=== PATIENT | male | born 1935 | race Caucasian/White ===

== ENCOUNTER → 2016-07-03 | Outpatient (CLI) | payer MEDICARE, OTHER ==
[~2016-07-03] MED LIST: B-1210005 PO; CLIN1SOL; CREON24; CYAN1TAB24; D31000CA; D32000TA PO; DILA2TAB2 PO; FOLI400T PO; FOLI400T30 PO; GABA300C5; GABA600T PO; HYDR-3533 PO; HYDR-3583 PO; HYDR10SO PO; METR0.752; METR0.7537; PARO20TA PO; PARO20TA2; PARO30TA2 PO; RAMI10CA PO; RAMI10CA35 PO; SIMV20TA PO; TRAM50TA PO; TRAZ150T2 PO; TRAZ150T75; ULTR50TA PO; ZOCO40TA PO
[2016-07-03 13:09] LABS: AUTOMATED NEUTROPHIL # 6.3 TH/MM3 (1.8-7.7); BASOPHIL # 0.1 TH/MM3 (0-0.2); BASOPHIL % 0.8 % (0.0-2.0); EOSINOPHIL # 0.3 TH/MM3 (0-0.4); EOSINOPHIL % 3.4 % (0.0-4.0); HEMO FLAGS DIFF FINAL; LYMPH % 15.9 % (9.0-44.0); LYMPHOCYTE # 1.4 TH/MM3 (1.0-4.8); MEAN CELL VOLUME 95.3 FL (80.0-100.0); MEAN CORPUSCULAR HEMOGLOBIN 32.6 PG (27.0-34.0); MEAN CORPUSCULAR HGB CONC 34.2 % (32.0-36.0); MONO % 7.5 % (0.0-8.0); NEUT % 72.4 % (16.0-70.0); PLATELET COUNT 223 TH/MM3 (150-450); RED CELL DISTRIBUTION WIDTH 12.9 % (11.6-17.2); WHITE BLOOD COUNT 8.7 TH/MM3 (4.0-11.0)
== END ==
LOC: PLAB 10:33
PROVIDERS: ATTEND Urology
DX: C61 Malignant neoplasm of prostate (principal); E29.1 Testicular hypofunction; Z79.899 Other long term (current) drug therapy
CPT/HCPCS: 36415; 84153; 84402; 84403; 85025

== ENCOUNTER → 2016-07-13 | Outpatient (CLI) | payer MEDICARE, OTHER ==
[2016-07-13 16:26] LABS: BLOOD, URINE NEG (NEG); GLUCOSE,URINE NEG (NEG); KETONE, URINE NEG (NEG); MUCUS URINE FEW /lpf (OCC); NITRITE,URINE NEG (NEG); PH, URINE 5.5 (5.0-8.5); SQUAMOUS EPITHELIAL CELL URINE <1 /hpf (0-5); URINE COLOR YELLOW (YELLW/STRAW)
[2016-07-13 16:35] LABS: HEMATOCRIT 40.4 % (39.0-51.0); MEAN CELL VOLUME 95.1 FL (80.0-100.0); MEAN CORPUSCULAR HEMOGLOBIN 32.2 PG (27.0-34.0); MEAN CORPUSCULAR HGB CONC 33.9 % (32.0-36.0); PLATELET COUNT 178 TH/MM3 (150-450); RED BLOOD COUNT 4.25 MIL/MM3 (4.50-5.90); RED CELL DISTRIBUTION WIDTH 12.9 % (11.6-17.2); REVIEW FLAG FINAL; WHITE BLOOD COUNT 8.9 TH/MM3 (4.0-11.0)
[2016-07-13 16:51] LABS: AST (GOT) 12 U/L (15-37); BLOOD UREA NITROGEN 18 MG/DL (7-18); CHLORIDE 108 MEQ/L (98-107); GLOMERULAR FILTRATION RATE 51 ML/MIN (>89); GLUCOSE,FASTING 133 MG/DL (74-99); POTASSIUM 4.5 MEQ/L (3.5-5.1); SODIUM (NA) 142 MEQ/L (136-145)
[2016-07-13 17:28] LABS: ALKALINE PHOSPHATASE 79 U/L (45-117); ALT (GPT) 28 U/L (12-78); ANION GAP 7 MEQ/L (5-15); BICARBONATE 26.6 MEQ/L (21.0-32.0); HDL CHOLESTEROL 40.2 MG/DL (40.0-60.0); LDL CHOLESTEROL 88 MG/DL (0-99); LDL CHOLESTEROL DIRECT 94 MG/DL (0-99); TOTAL BILIRUBIN ADULT 0.3 MG/DL (0.2-1.0)
[2016-07-13 21:10] LABS: HEMOGLOBIN A1a 1.1 %; HEMOGLOBIN A1b 2.3 %; HEMOGLOBIN Ao 81.5 %; HEMOGLOBIN LA1C 2.5 %; HEMOGLOBIN P3 4.7 %
== END ==
LOC: PLAB 13:22
PROVIDERS: ATTEND Family Medicine
DX: E11.9 Type 2 diabetes mellitus without complications (principal); E78.2 Mixed hyperlipidemia; I10 Essential (primary) hypertension
CPT/HCPCS: 36415; 80053; 80061; 81001; 82043; 83036; 83721; 85027

== ENCOUNTER → 2016-10-07 | Outpatient (CLI) | payer MEDICARE, OTHER ==
[2016-10-07 16:01] LABS: HEMATOCRIT 36.9 % (39.0-51.0); MEAN CELL VOLUME 96.1 FL (80.0-100.0); MEAN CORPUSCULAR HEMOGLOBIN 33.2 PG (27.0-34.0); MEAN CORPUSCULAR HGB CONC 34.5 % (32.0-36.0); PLATELET COUNT 237 TH/MM3 (150-450); RED BLOOD COUNT 3.84 MIL/MM3 (4.50-5.90); RED CELL DISTRIBUTION WIDTH 13.2 % (11.6-17.2); REVIEW FLAG FINAL; WHITE BLOOD COUNT 10.2 TH/MM3 (4.0-11.0)
[2016-10-07 16:15] LABS: ALKALINE PHOSPHATASE 69 U/L (45-117); ALT (GPT) 26 U/L (12-78); ANION GAP 7 MEQ/L (5-15); AST (GOT) 15 U/L (15-37); BICARBONATE 27.1 MEQ/L (21.0-32.0); BLOOD UREA NITROGEN 21 MG/DL (7-18); CHLORIDE 105 MEQ/L (98-107); GLOMERULAR FILTRATION RATE 46 ML/MIN (>89); GLUCOSE,FASTING 145 MG/DL (74-99); LDL CHOLESTEROL 70 MG/DL (0-99); LDL CHOLESTEROL DIRECT 85 MG/DL (0-99); POTASSIUM 4.3 MEQ/L (3.5-5.1); SODIUM (NA) 139 MEQ/L (136-145); TOTAL BILIRUBIN ADULT 0.4 MG/DL (0.2-1.0)
[2016-10-07 18:47] LABS: HEMOGLOBIN A1a 1.8 %; HEMOGLOBIN A1b 2.1 %; HEMOGLOBIN LA1C 2.4 %; HEMOGLOBIN P3 4.3 %
== END ==
LOC: PLAB 11:16
PROVIDERS: ATTEND Family Medicine
DX: E11.9 Type 2 diabetes mellitus without complications (principal); E78.2 Mixed hyperlipidemia; I10 Essential (primary) hypertension
CPT/HCPCS: 36415; 80053; 80061; 83036; 83721; 85027

== ENCOUNTER 2016-11-11 12:49 | Emergency (ER) | payer MEDICARE, OTHER ==
[~2016-11-11] VITALS: Ht 177.8 cm; Wt 79.0 kg
[~2016-11-11 12:49] MED LIST changes: -CLIN1SOL; -CREON24; -CYAN1TAB24; -D31000CA; -DILA2TAB2 PO; -FOLI400T PO; -GABA300C5; -HYDR-3533 PO; -HYDR-3583 PO; -METR0.752; -METR0.7537; -PARO20TA2; -PARO30TA2 PO; -RAMI10CA PO; -SIMV20TA PO; -TRAM50TA PO; -TRAZ150T75
[2016-11-11 12:50] VITALS: BP 142/62; PULSE 78; RESP 20; TEMP 98.5; O2SAT 95
[2016-11-11] MEDS ORDERED: SIMV20TA PO ×2 (13:20)
[2016-11-11] MEDS ORDERED: TRAM50TA PO ×2 (13:20)
[2016-11-11] MEDS ORDERED: PARO30TA2 PO ×2 (13:20)
[2016-11-11] MEDS ORDERED: GABA600T PO ×2 (13:20)
[2016-11-11] MEDS ORDERED: RAMI10CA PO ×2 (13:20)
--- NOTE | 2016-11-11 14:03 | PD ---
HPI Chief Complaint: Pain: Acute or Chronic Time Seen by Provider: 13:40 Travel History International Travel<30 days: No Contact w/Intl Traveler<30days: No Traveled to known affect area: No History of Present Illness HPI Patient comes emergency Department complaining of left low back pain and increasing worse over the past 2 weeks. Patient previous back surgery done by Dr. Medley in 2013. Patient reports he had an MRI done 3 months ago. Patient states has been trying to get in contact with Dr. Medley, but has been unable to over the past couple weeks. Patient states pain is getting progressively worse. Patient states se's been taking his tramadol for this with little to no improvement of symptoms. Patient's pain was so bad today he was unable to stand on his left leg. Patient denies any new numbness or tingling, loss of bowel or bladder, chest pain, abdominal pain, shortness of breath, or fevers. Patient states he normally walks with walking sticks but has had to start using his walker again. PFSH Past Medical History Arthritis: Yes Anxiety: No Depression: No Cancer: Yes (PROSTATE CANCER) Cardiovascular Problems: No High Cholesterol: Yes Diabetes: No Endocrine: No Genitourinary: No Hepatitis: No Hiatal Hernia: No Hypertension: Yes Immune Disorder: No Musculoskeletal: Yes (ARTHRITIS, COMPRESSED DISC L3) Neurologic: No (LEFT NUMBNESS, TINGLING BILATERAL FEET) Psychiatric: Yes (DEPRESSION, ANXIETY) Reproductive: No Respiratory: Yes (COPD) Immunizations Current: No Past Surgical History Abdominal Surgery: No Body Medical Devices: NONE Cardiac Surgery: No Ear Surgery: No Endocrine Surgery: No Eye Surgery: Yes (CATARACT SURG BILAT.) Genitourinary Surgery: No Oral Surgery: Yes (TONSILLECTOMY) Pacemaker: No Thoracic Surgery: No Tonsillectomy: Yes Social History Alcohol Use: No Tobacco Use: Yes Substance Use: No Allergies-Medications (Allergen,Severity, Reaction): Coded Allergies: Sulfa (Unverified Allergy, Severe, Swelling, 06/11/14) Reported Meds & Prescriptions Reported Meds & Active Scripts Active Lortab (Hydrocodone-Acetaminophen) 5-325 Mg Tab 1 Tab PO Q8HR PRN Reported Tramadol (Tramadol HCl) 50 Mg Tab 50 Mg PO Q4H PRN Simvastatin 20 Mg Tab 20 Mg PO DAILY Paroxetine (Paroxetine HCl) 30 Mg Tab 30 Mg PO DAILY Ramipril 10 Mg Cap 10 Mg PO DAILY Gabapentin 600 Mg Tab 600 Mg PO TID Zocor 40 mg (Simvastatin) 40 Mg Tab 1 Tab PO HS ON HOLD FOR SURGERY Hydrocodone/Acetaminophen (Miscellaneous Medication) 1 Tab 1 Tab PO Q8 PRN Paroxetine Hcl 20 Mg Tab 50 Mg PO DAILY Ramipril 10 mg (Ramipril) 10 Mg Cap 10 Mg PO DAILY B-12 (Cyanocobalamin) 1,000 Cr Tab 1,000 Cr PO DAILY Gabapentin 600 Mg Tab 600 Mg PO TID Folate (Folic Acid) 400 Mcg Tab 800 Mcg PO Ultram (Tramadol HCl) 50 Mg Tab 50 Mg PO QID PRN D3 (Cholecalciferol) 2,000 Unit Tab 2,000 Unit PO DAILY Desyrel 150 Mg Tab (Trazodone HCl) 150 Mg Tab 75 Mg PO HS Review of Systems Except as stated in HPI: all other systems reviewed are Neg Physical Exam Narrative GENERAL: Well-developed, overly nourished, in no acute distress, and non-ill appearing. SKIN: Focused skin assessment warm and dry. HEAD: Atraumatic. Normocephalic. EYES: Pupils equal and round. EOMI. No scleral icterus. No injection or drainage. ENT: No nasal bleeding or discharge. Mucous membranes pink and moist. NECK: Trachea midline. Supple. No nuclear rigidity. CARDIOVASCULAR: Dorsal pulses 2+, intact, and equal bilaterally. RESPIRATORY: No accessory muscle use. No respiratory distress. MUSCULOSKELETAL: No obvious deformities. No clubbing. No cyanosis. No edema. Full range of motion. Hip: FROM and equal BL with passive flexion, extension, Abduction, Adduction, and internal/external rotation. Pulses equal BL distal to injury. Capillary refill less than 2 seconds distal to injury and equal BL. FROM distal to injury and equal BL. Strength distal to injury equal BL. NV intact distal to injury and equal BL. Plantar flexion and dorsal flexion equal BL. Dorsal pulses equal BL. Sensation equal BL 1st web space. No crepitus chest or midline lumbar spine. Patient reports palpation left lateral paravertebral spinal muscle. NEUROLOGICAL: Awake and alert. No obvious cranial nerve deficits. Motor grossly within normal limits. Normal speech. PSYCHIATRIC: Appropriate mood and affect; insight and judgment normal. Data Data Last Documented VS Vital Signs Date Time Temp Pulse Resp B/P Pulse Ox O2 Delivery O2 Flow Rate FiO2 5/17/17 12:50 98.5 78 20 142/62 95 Room Air Orders Acetamin-Hydrocod 325-5 Mg ([place] 5-325 (11/11/16 14:15) MDM Medical Decision Making Medical Screen Exam Complete: Yes Emergency Medical Condition: Yes Medical Record Reviewed: Yes Differential Diagnosis Fracture, strain, worsening bulging disc, other Narrative Course I discussed the options of the patient is being admitted versus going home. Patient is wanting to go home at this point and follow-up as an outpatient. Patient in no obvious distress upon re-evaluation. I discussed patient with Dr. Trimble prior to discharge, who is in agreement plan of care and disposition. Patient was asked if they wanted to speak to my attending, which the patient did not wish to do at this time. Any questions/concerns in reference to patient diagnosis/condition discussed and clarified prior to patient's discharge. Reinforced sheer importance of close follow up with Dr. Medley. Instructed patient to return to ED immediately, if symptoms return/ worsen. Pt showed understanding of above instructions. Further instructions and recommendations were detailed in discharge paperwork. Pt ambulated without difficulty out of ED at discharge with his walker. Physician Communication Physician Communication [address] Medley, who reviewed patient's MRI and recommended either having patient admitted, but states be several days before he is able get patient for surgery or if the patient is comfortable with going home and outpatient follow-up can be done as well. Diagnosis Primary Impression: Lumbar herniated disc Referrals: Tyson Medley MD Patient Instructions: General Instructions, Lumbar Disc Herniation (ED) Additional Instructions: Follow-up with Dr. Medley as soon as possible. Call his office for an appointment. Take all medication as prescribed. Return to the emergency department if symptoms get worse. Med/Other Pt SpecificInfo: Prescription(s) given Scripts Hydrocodone-Acetaminophen (Lortab)5-325 Mg Tab1 Tab PO Q8HR PRN (PAIN) #10 TAB Ref 0 Prov:Matias Trimble MD 11/11/16 Disposition: 01 DISCHARGE HOME Condition: Stable Bryan Evans November 11, 2016 14:03
[2016-11-11] MEDS ORDERED: HYDR-3533 PO (14:10)
[2016-11-11] MEDS ORDERED: ACETAMINOPHEN/HYDROcodone 325 MG/5 MG TAB PO ONE (14:15)
[2016-11-12] MEDS ORDERED: PARO20TA2 (13:44)
[2016-11-12] MEDS ORDERED: FOLI400T PO ×2 (13:44)
[2016-11-12] MEDS ORDERED: D31000CA ×2 (13:44)
[2016-11-12] MEDS ORDERED: CLIN1SOL ×2 (13:44)
[2016-11-12] MEDS ORDERED: GABA300C5 (13:44)
[2016-11-12] MEDS ORDERED: TRAZ150T75 ×2 (13:44)
[2016-11-12] MEDS ORDERED: METR0.7537 ×2 (13:44)
[2016-11-12] MEDS ORDERED: CREON24 ×2 (13:44)
[2016-11-12] MEDS ORDERED: CYAN1TAB24 ×2 (13:44)
[2016-11-12] MEDS ORDERED: METR0.752 ×2 (13:44)
== END 2016-11-11 14:33 | disposition home or self-care (01) ==
LOC: NEPD 12:49
DX: M51.26 Other intervertebral disc displacement, lumbar region (principal)
CPT/HCPCS: 99283

== ENCOUNTER 2016-11-14 12:18 | Inpatient (IN) | payer MEDICARE, OTHER ==
[~2016-11-14] VITALS: Ht 175.3 cm; Wt 78.3 kg
[~2016-11-14 12:18] MED LIST changes: +CLIN1SOL; +CREON24; +CYAN1TAB24; +D31000CA; +FOLI400T PO; +GABA300C5; +HYDR-3533 PO; +METR0.752; +METR0.7537; +PARO20TA2; +PARO30TA2 PO; +RAMI10CA PO; +SIMV20TA PO; +TRAM50TA PO; +TRAZ150T75
[2016-11-14 12:19] VITALS: BP 125/58; PULSE 74; RESP 20; TEMP 98.5; O2SAT 95
--- NOTE | 2016-11-14 12:44 | PD ---
HPI Chief Complaint: Pain: Acute or Chronic Time Seen by Provider: 12:44 Travel History International Travel<30 days: No Contact w/Intl Traveler<30days: No Traveled to known affect area: No History of Present Illness HPI Patient comes back to the emergency department after being seen 3 days ago for worsening back pain. Patient was offered admission at that time however chose to try outpatient treatment first. Patient states he's been taking tramadol along with hydrocodone that was prescribed from previous visit however his pain continues getting worse. Patient states he is getting more decreased sensation in his left lower extremity. Denies any loss or change of bowel or bladder, falls, nausea, vomiting, fevers, abdominal pain, or shortness of breath. Patient describes pain as sharp/stabbing/spasm in nature and radiates slightly into his left lower extremity. Patient reports some difficulty taking care of himself at home secondary to the pain and ambulatory issues. Pain is made worse with walking and certain movement. Patient has a history of COPD, hypertension, hyperlipidemia, and L3 disc compression. PFSH Past Medical History Arthritis: Yes Anxiety: No Depression: Yes Cancer: Yes (PROSTATE CANCER) Cardiovascular Problems: Yes (htn) High Cholesterol: Yes Diabetes: No Endocrine: No Gastrointestinal Disorders: Yes (CELIAC DISEASE) Genitourinary: No Hepatitis: No Hiatal Hernia: No Hypertension: Yes Immune Disorder: No Musculoskeletal: Yes (ARTHRITIS, COMPRESSED DISC L3) Neurologic: No (LEFT NUMBNESS, TINGLING BILATERAL FEET) Psychiatric: Yes (DEPRESSION, ANXIETY) Reproductive: No Respiratory: Yes (COPD) Immunizations Current: No Influenza Vaccination: Yes Past Surgical History Abdominal Surgery: No Body Medical Devices: NONE Cardiac Surgery: No Ear Surgery: No Endocrine Surgery: No Eye Surgery: Yes (CATARACT SURG BILAT.) Genitourinary Surgery: No Oral Surgery: Yes (TONSILLECTOMY) Pacemaker: No Thoracic Surgery: No Tonsillectomy: Yes Social History Alcohol Use: No Tobacco Use: Yes (1/2 ppd) Substance Use: No Allergies-Medications (Allergen,Severity, Reaction): Coded Allergies: Sulfa (Unverified Allergy, Severe, Swelling, 11/14/16) Reported Meds & Prescriptions Reported Meds & Active Scripts Active Lortab (Hydrocodone-Acetaminophen) 5-325 Mg Tab 1 Tab PO Q8HR PRN Reported Folic Acid 400 Mcg Tab 400 Mcg PO DAILY B12 (Cyanocobalamin) 1,000 Mcg Tab D3 (Cholecalciferol) 1,000 Unit Cap 2,000 Creon (Amylase/Lipase/Protease) 24,000-76,000-120,000 Units Cap Trazodone (Trazodone HCl) 150 Mg Tab Clindamycin Topical (Clindamycin Phosphate) 1% Soln Metronidazole Topical 0.75 % Cream Metronidazole Topical 0.75 % Gel Tramadol (Tramadol HCl) 50 Mg Tab 50 Mg PO Q4H PRN Simvastatin 20 Mg Tab 20 Mg PO DAILY Paroxetine (Paroxetine HCl) 30 Mg Tab 30 Mg PO DAILY Ramipril 10 Mg Cap 10 Mg PO DAILY Gabapentin 600 Mg Tab 600 Mg PO TID Review of Systems Except as stated in HPI: all other systems reviewed are Neg Physical Exam Narrative GENERAL: Well-developed, overly nourished, in no acute distress, and non-ill appearing. SKIN: Focused skin assessment warm and dry. HEAD: Atraumatic. Normocephalic. EYES: Pupils equal and round. EOMI. No scleral icterus. No injection or drainage. ENT: No nasal bleeding or discharge. Mucous membranes pink and moist. NECK: Trachea midline. Supple. No nuclear rigidity. CARDIOVASCULAR: Dorsal pulses 2+, tach, and intact. Capillary refill is less than 2 seconds. RESPIRATORY: No accessory muscle use. No respiratory distress. MUSCULOSKELETAL: No obvious deformities. No clubbing. No cyanosis. No edema. Full range of motion. Hip: FROM and equal BL with passive flexion, extension, Abduction, Adduction, and internal/external rotation. Pulses equal BL distal to injury. Capillary refill less than 2 seconds distal to injury and equal BL. FROM distal to injury. Dorsal flexion equal BL. Dorsal pulses equal BL. Sensation decreased over left lower extremity compared to right over 1st web space. Negative Babinski sign bilaterally. Decreased strength with plantar flexion on left compared to right. NEUROLOGICAL: Awake and alert. No obvious cranial nerve deficits. Motor grossly within normal limits. Normal speech. PSYCHIATRIC: Appropriate mood and affect; insight and judgment normal. Data Data Last Documented VS Vital Signs Date Time Temp Pulse Resp B/P Pulse Ox O2 Delivery O2 Flow Rate FiO2 11/14/16 12:19 98.5 74 20 125/58 95 Room Air Orders Basic Metabolic Panel (Bmp) (11/14/16 12:52) Complete Blood Count With Diff (11/14/16 12:52) Prothrombin Time / Inr (Pt) (11/14/16 12:52) Act Partial Throm Time (Ptt) (11/14/16 12:52) Iv Access Insert/Monitor (11/14/16 12:52) Ecg Monitoring (11/14/16 12:52) Oximetry (11/14/16 12:52) Morphine Inj (Morphine Inj) (11/14/16 13:00) Ondansetron Inj (Zofran Inj) (11/14/16 13:00) Sodium Chloride 0.9% Flush (Ns Flush) (11/14/16 13:00) Admit Order (Ed Use Only) (11/14/16 14:43) Admit To Inpatient (11/14/16 14:41) Vital Signs (Adult) Q4H (11/14/16 14:41) ^ Elevate Head Of Bed (11/14/16 14:41) Diet Regular Basic (11/14/16 Dinner) Resp Incentive Spirometry (11/14/16 14:41) Consult Pt Eval & Treat (11/14/16 14:41) Activity Oob With Assistance PRN (11/14/16 14:41) Scd Bilateral/Knee High ITZEL.QSHIFT (11/14/16 14:41) Vital Signs (Adult) ITZEL.Q4H (11/14/16 14:41) Neuro Checks RT.Q4H (11/14/16 14:41) Inpatient Certification (11/14/16 ) Oxycodone-Acetamin 10-325 Mg (Percocet 1 (11/14/16 14:45) Hydromorphone Pf Inj (Dilaudid Pf Inj) (11/14/16 14:45) Morphine Inj (Morphine Inj) (11/14/16 14:45) Oxycodone (Roxicodone) (11/14/16 14:45) Naloxone Inj (Narcan Inj) (11/14/16 14:45) Folic Acid (Folate) (11/15/16 09:00) Acetamin-Hydrocod 325-5 Mg ([place] 5-325 (11/14/16 15:00) Tramadol (Ultram) (11/14/16 15:00) Paroxetine (Paxil) (11/15/16 09:00) Ramipril (Altace) (11/15/16 09:00) Labs Laboratory Tests Test 11/14/16 13:01 White Blood Count 8.3 TH/MM3 Red Blood Count 3.90 MIL/MM3 Hemoglobin 12.9 GM/DL Hematocrit 37.1 % Mean Corpuscular Volume 95.1 FL Mean Corpuscular Hemoglobin 33.1 PG Mean Corpuscular Hemoglobin 34.8 % Concent Red Cell Distribution Width 12.9 % Platelet Count 189 TH/MM3 Mean Platelet Volume 8.9 FL Neutrophils (%) (Auto) 72.5 % Lymphocytes (%) (Auto) 13.5 % Monocytes (%) (Auto) 11.3 % Eosinophils (%) (Auto) 2.1 % Basophils (%) (Auto) 0.6 % Neutrophils # (Auto) 6.0 TH/MM3 Lymphocytes # (Auto) 1.1 TH/MM3 Monocytes # (Auto) 0.9 TH/MM3 Eosinophils # (Auto) 0.2 TH/MM3 Basophils # (Auto) 0.0 TH/MM3 CBC Comment DIFF FINAL Differential Comment Prothrombin Time 10.6 SEC Prothromb Time International 1.0 RATIO Ratio Activated Partial 27.5 SEC Thromboplast Time Sodium Level 141 MEQ/L Potassium Level 4.1 MEQ/L Chloride Level 108 MEQ/L Carbon Dioxide Level 25.2 MEQ/L Anion Gap 8 MEQ/L Blood Urea Nitrogen 17 MG/DL Creatinine 1.23 MG/DL Estimat Glomerular Filtration 57 ML/MIN Rate Random Glucose 130 MG/DL Calcium Level 8.9 MG/DL MDM Medical Decision Making Medical Screen Exam Complete: Yes Emergency Medical Condition: Yes Medical Record Reviewed: Yes Interpretation(s) MRI report was reviewed from July 31, 2016. Shows L3/4, there is a broad- based posterior disc bulge and focal disc extrusion into the left neural foramen with impingement of the left L3 nerve root which appears to have worsened slightly since 2014 examination. Remainder of lumbar spine stable since prior study. No fracture or spondylolisthesis. Conus medullaris is intact. Differential Diagnosis Lumbar herniated disc, lumbar radiculopathy, intractable back pain, other Narrative Course 0786 patient reassessed resting comfortably in bed in no acute distress. States pain medication as helped some but has not completely alleviated his pain. Discussed all findings with patient's lab work. Awaiting neurosurgery. Patient seen and examined. IV was established. Laboratory studies were obtained and reviewed. Patient was given morphine for pain and Zofran for nausea. Discussed patient with Dr. Mejia, who saw and evaluated the patient and is in agreement with plan of care and disposition. Discussed all findings and plan care of patient is agreeable for admission. All questions were answered. Patient remained stable throughout ED course. Physician Communication Physician Communication [address] Medley, neurosurgical hole in patient's neurosurgeon, states he'll come evaluate patient in the emergency department. 1440 discussed laboratory findings and MRI report from July of this year with Dr. Medley, states he will admit the to patient. Diagnosis Primary Impression: Lumbar herniated disc Additional Impression: Intractable low back pain Admitting Information Admitting Physician Requests: Admit Condition: Stable Bryan Evans November 14, 2016 12:44
[2016-11-14] MEDS ORDERED: ONDANSETRON HCL 4 MG/2 ML VIAL IVP ONE (13:00)
[2016-11-14] MEDS ORDERED: SODIUM CHLORIDE 0.9% FLUSH 10 ML FLUSH IV FLUSH PRN (13:00)
[2016-11-14] MEDS ORDERED: MORPHINE SULFATE 4 MG/ML INJ IV PUSH ONE (13:00)
[2016-11-14 13:26] LABS: BASOPHIL % 0.6 % (0.0-2.0); EOSINOPHIL # 0.2 TH/MM3 (0-0.4); EOSINOPHIL % 2.1 % (0.0-4.0); HEMATOCRIT 37.1 % (39.0-51.0); HEMO FLAGS DIFF FINAL; LYMPH % 13.5 % (9.0-44.0); LYMPHOCYTE # 1.1 TH/MM3 (1.0-4.8); MEAN CELL VOLUME 95.1 FL (80.0-100.0); MEAN CORPUSCULAR HEMOGLOBIN 33.1 PG (27.0-34.0); MEAN CORPUSCULAR HGB CONC 34.8 % (32.0-36.0); MONO % 11.3 % (0.0-8.0); NEUT % 72.5 % (16.0-70.0); PLATELET COUNT 189 TH/MM3 (150-450); RED CELL DISTRIBUTION WIDTH 12.9 % (11.6-17.2); WHITE BLOOD COUNT 8.3 TH/MM3 (4.0-11.0)
[2016-11-14 13:35] LABS: APTT (PATIENT) 27.5 SEC (24.3-30.1); PROTHROMBIN TIME - PATIENT 10.6 SEC (9.8-11.6)
[2016-11-14 13:41] LABS: BICARBONATE 25.2 MEQ/L (21.0-32.0); POTASSIUM 4.1 MEQ/L (3.5-5.1)
[2016-11-14] MEDS ORDERED: HYDROmorphone HCL PF 1 MG/ML VIAL IV PRN (14:45)
[2016-11-14] MEDS ORDERED: NALOXONE HCL 0.4 MG/ML AMP IV PRN (14:45)
[2016-11-14 14:50] VITALS: RESP 16; O2SAT 97
[2016-11-14] MEDS ORDERED: traMADol HCL 50 MG TAB PO PRN (15:00)
[2016-11-14] MEDS ORDERED: ACETAMINOPHEN/HYDROcodone 325 MG/5 MG TAB PO PRN (15:00)
--- NOTE | 2016-11-14 15:11 | HHI.HP ---
HPI Service Neurosurgery Primary Care Physician Allan Lewis MD Chief Complaint: Progressive severe back pain with radiation to the left lower extremity History of Present Illness 81-year-old male previously seen by the undersigned in 2013 at which time he underwent a left L3-4 far lateral approach for foraminotomy and foraminal disc herniation. He initially did well following surgery. However approximately 3 months ago he began to experience recurrent pain in the left lower extremity. He was seen by interventional pain management a couple months ago, but declined epidural steroid injections or other intervention since ceased did not help prior to his last surgery. He was in the emergency room approximately 3 days ago. At that time admission and surgical intervention were offered, however he elected to continue outpatient conservative treatment. He returns to the emergency room on 11/14/2016 with persistent severe left lower extremity pain which is not controlled with medications. No complaint of fevers chills sweats No bowel or bladder dysfunction No pain weakness or numbness or paresthesias in the upper extremities Review of Systems Constitutional: DENIES: Fatigue, Fever, Weight loss Eyes: COMPLAINS OF: Vision loss Ears, nose, mouth, throat: DENIES: Hearing loss, Vertigo, Throat pain Respiratory: COMPLAINS OF: Cough, Wheezing, Shortness of breath, DENIES: Sputum production Cardiovascular: DENIES: Chest pain, Palpitations Gastrointestinal: DENIES: Abdominal pain, Constipation, Diarrhea, Nausea Genitourinary: DENIES: Urinary incontinence Musculoskeletal: COMPLAINS OF: Joint pain Neurologic: COMPLAINS OF: Localized weakness, DENIES: Abnormal gait Past Family Social History Allergies: Coded Allergies: Sulfa (Unverified Allergy, Severe, Swelling, 11/14/16) Past Medical History Hypertension COPD dyslipidemia Arthritis History of prostate cancer Anxiety and depression Past Surgical History Tonsillectomy Cataract surgery Lumbar discectomy 2013 Reported Medications Reported Meds & Active Scripts Active Lortab (Hydrocodone-Acetaminophen) 5-325 Mg Tab 1 Tab PO Q8HR PRN Reported Folic Acid 400 Mcg Tab 400 Mcg PO DAILY B12 (Cyanocobalamin) 1,000 Mcg Tab D3 (Cholecalciferol) 1,000 Unit Cap 2,000 Creon (Amylase/Lipase/Protease) 24,000-76,000-120,000 Units Cap Trazodone (Trazodone HCl) 150 Mg Tab Clindamycin Topical (Clindamycin Phosphate) 1% Soln Metronidazole Topical 0.75 % Cream Metronidazole Topical 0.75 % Gel Tramadol (Tramadol HCl) 50 Mg Tab 50 Mg PO Q4H PRN Simvastatin 20 Mg Tab 20 Mg PO DAILY Paroxetine (Paroxetine HCl) 30 Mg Tab 30 Mg PO DAILY Ramipril 10 Mg Cap 10 Mg PO DAILY Gabapentin 600 Mg Tab 600 Mg PO TID Family History Positive for macular degeneration Social History Smokes a half pack cigarettes per day No significant alcohol use Physical Exam Vital Signs Vital Signs Date Time Temp Pulse Resp B/P Pulse Ox O2 Delivery O2 Flow Rate FiO2 11/14/16 12:19 98.5 74 20 125/58 95 Room Air Physical Exam GENERAL: Well-nourished, well-developed patient. SKIN: Warm and dry. HEAD: Normocephalic and atraumatic. EYES: No scleral icterus. No injection or drainage. ENT: No nasal drainage noted. Mucous membranes pink. Airway patent. NECK: Supple, trachea midline. No JVD. CARDIOVASCULAR: Regular rate and rhythm without murmurs, gallops, or rubs. RESPIRATORY: Mild crackles in the upper lungs. Mild intermittent right upper lung inspiratory wheeze. Mild nonproductive cough GASTROINTESTINAL: Abdomen soft, non-tender, nondistended. EXTREMITIES: No cyanosis or edema. BACK: Nontender without obvious deformity. No CVA tenderness. Neurologic: Awake and alert Oriented 3 Speech is clear Mild slowing of speech and thought processes Conversant and appropriate Follow simple commands well Answers questions appropriately Reasonable judgment and insight Recent and remote memory are mildly impaired No evidence of anxiety or depression Sensation intact by touch upper extremities and right lower extremity Moderate decreased sensation primarily L3-4 distribution left thigh and calf Strength is within normal limits upper extremities and right lower extremity major flexion and extension groups Strength is somewhat diffusely diminished to mostly 3/5 throughout the left lower extremity major flexion and extension groups with complaining of significant lateral hip, anterior lateral thigh pain with testing. Laboratory Laboratory Tests Test 11/14/16 13:01 White Blood Count 8.3 Red Blood Count 3.90 Hemoglobin 12.9 Hematocrit 37.1 Mean Corpuscular Volume 95.1 Mean Corpuscular Hemoglobin 33.1 Mean Corpuscular Hemoglobin 34.8 Concent Red Cell Distribution Width 12.9 Platelet Count 189 Mean Platelet Volume 8.9 Neutrophils (%) (Auto) 72.5 Lymphocytes (%) (Auto) 13.5 Monocytes (%) (Auto) 11.3 Eosinophils (%) (Auto) 2.1 Basophils (%) (Auto) 0.6 Neutrophils # (Auto) 6.0 Lymphocytes # (Auto) 1.1 Monocytes # (Auto) 0.9 Eosinophils # (Auto) 0.2 Basophils # (Auto) 0.0 CBC Comment DIFF FINAL Differential Comment Prothrombin Time 10.6 Prothromb Time International 1.0 Ratio Activated Partial 27.5 Thromboplast Time Sodium Level 141 Potassium Level 4.1 Chloride Level 108 Carbon Dioxide Level 25.2 Anion Gap 8 Blood Urea Nitrogen 17 Creatinine 1.23 Estimat Glomerular Filtration 57 Rate Random Glucose 130 Calcium Level 8.9 Result Diagram: 11/14/16 1301 11/14/16 1301 Imaging The patient's most recent MRI of the lumbar spine from July 2016 images are reviewed. There appears to be a prominent left L4-5 recurrent disc herniation, although lateral synovial cyst cannot be totally ruled out. Assessment and Plan Assessment and Plan Impression: 1. Recurrent left L3 4 foraminal herniated nucleus pulposus. Cannot totally rule out a recurrent synovial cyst based on MRI imaging. Plan: Findings were discussed at length with the patient Options of further conservative treatment including use of various medications, interventional pain management, and surgical intervention have been fully discussed. Surgical options of repeat discectomy versus possible interbody fusion in view of recurrent disc herniation has been discussed along with pros and cons of each. He states that his pain has been quite severe and not responding well to medications and conservative therapy over the past 3 months. He did not get good relief from previous epidural steroid injections and does not wish to repeat these. He wishes to proceed with surgical intervention. A follow-up MRI of the lumbar spine with and without contrast will be obtained to try to better delineate the pathology involved. Continuing intravenous pain medications and muscle relaxants as needed. Tyson Medley MD November 14, 2016 15:11
[2016-11-14] MEDS ORDERED: PILL SPLITTER OTHER PRN (15:15)
[2016-11-14] MEDS: MORPHINE SULFATE 4 MG/ML INJ IV PRN (16:33)
[2016-11-14 17:33] VITALS: BP 153/69; PULSE 62; RESP 20; TEMP 96.3; O2SAT 95
[2016-11-14] MEDS: oxyCODONE/ACETAMINOPHEN 10 MG/325 MG TAB PO PRN (18:02)
[2016-11-14 20:00] VITALS: BP 161/76; PULSE 73; RESP 18; TEMP 96.2; O2SAT 92
[2016-11-15] VITALS: BP 120/71; PULSE 71; RESP 18; TEMP 97.3; O2SAT 93
[2016-11-15] MEDS: MORPHINE SULFATE 4 MG/ML INJ IV PRN ×3 (01:24→12:28)
[2016-11-15 04:00] VITALS: BP 159/72; PULSE 78; RESP 18; TEMP 97; O2SAT 92
[2016-11-15 08:03] VITALS: BP 151/71; PULSE 77; RESP 20; TEMP 98.9; O2SAT 93
[2016-11-15] MEDS ORDERED: GADODIAMIDE PF 287 MG/ML 20 ML VIAL (for RAD MRI) IV ONE (08:31)
[2016-11-15] MEDS ORDERED: PARoxetine HCL 20 MG TAB PO SCH (09:00)
[2016-11-15] MEDS ORDERED: FOLIC ACID 1 MG TAB PO SCH (09:00)
[2016-11-15] MEDS ORDERED: RAMIPRIL 5 MG CAP PO SCH (09:00)
--- NOTE | 2016-11-15 09:10 | RADRPT ---
EXAM DATE/TIME: 11/15/2016 08:18 [facility] COMPARISON: No previous studies available for comparison. INDICATIONS : Low back pain with left radiculopathy. CONTRAST: 16 cc Omniscan (gadodiamide) IV MEDICAL HISTORY : Hypertension. Carcinoma, prostate. SURGICAL HISTORY : Tonsillectomy. Discectomy, lumbar. ENCOUNTER: Initial ACUITY: 2 day PAIN SCORE: 3/10 LOCATION: Left Paraspinal TECHNIQUE: Multiplanar multisequence MRI of the lumbar spine was performed with and without contrast. FINDINGS: The most caudal appearing lumbar vertebra is numbered as L5. There is diffuse disc desiccation. Conus unremarkable. Multilevel osteophyte formation is seen. No compression deformities. Mild reactive end plate edema at L4-5. There is mild disc space narrowing throughout the lumbar spine. L5 pars defects are suspected bilaterally. There is focal ectasia of the infrarenal abdominal aorta measuring 2.8 cm in transverse on axial image 19 of series 5. Multiple bilateral renal cysts are noted. There is a sma ll synovial cyst posterior to the L4 inferior articular facet on the left measures 7.6 mm. T12-L1: The thecal sac has a normal diameter. No evidence of disc bulge or protrusion. The neural foramina are patent bilaterally. L1-L2: The thecal sac has a normal diameter. No evidence of disc bulge or protrusion. The neural foramina are patent bilaterally. L2-L3: Mammography status post greatest laterally on the right. Mild facet and ligamentum flavum hypertrophy . No canal or foraminal narrowing. L3-L4: A diffuse disc bulge is present abutting the L4 nerve roots and L3 exiting nerves, left greater than right. Moderate facet and ligamentum flavum hypertrophy. No canal narrowing. Mild right, moderate to severe left foraminal narrowing. A superimposed broad-based left foraminal/lateral protrusion demonst rates mass effect on the L3 exiting nerve. L4-L5: Mild diffuse disc bulge with moderate facet hypertrophy. There is moderate bilateral foraminal narrow ing. Abutment of the L4 exiting nerves is seen. L5-S1: A diffuse disc bulge is present. There is abutment of the L5 exiting nerves. Mild bilateral foraminal narrowing. CONCLUSION: 1. Degenerative changes are noted as described above. Geronimo Caban MD on November 15, 2016 at 9:04 Board Certified Radiologist. This report was verified electronically.
[2016-11-15] MEDS: oxyCODONE/ACETAMINOPHEN 10 MG/325 MG TAB PO PRN (09:34)
[2016-11-15 12:22] VITALS: BP 123/63; PULSE 71; RESP 20; TEMP 98.4; O2SAT 94
[2016-11-15 12:44] VITALS: RESP 18
[2016-11-15] MEDS ORDERED: DILA2TAB2 PO (14:13)
[2016-11-15] MEDS ORDERED: HYDR-3583 PO (14:19)
--- NOTE | 2016-11-15 14:20 | HHI.DCPOC ---
Discharge Care Plan Diagnosis: (1) Neuropathy of lower extremity (2) Lumbar herniated disc (3) Lumbar radiculopathy Your Health Problems Are: Difficulty with ADL Loss of Movements Chronic Pain Goals to Promote Your Health * To prevent worsening of your condition and complications * To maintain your health at the optimal level Directions to Meet Your Goals Take your medications as prescribed Follow your dietary instruction Follow activity as directed Keep your appointments as scheduled Take your immunizations and boosters as scheduled If your symptoms worsen call your PCP, if no PCP go to Urgent Care Center or Emergency Room Smoking is Dangerous to Your Health. Avoid second hand smoke Call the 24-hour hour crisis hotline for domestic abuse at Tyson Medley MD November 15, 2016 14:20
--- NOTE | 2016-11-15 14:30 | HHI.DS ---
Discharge Summary Admission Date November 14, 2016 at 15:00 Discharge Date: November 15, 2016 Admitting Diagnosis lumbar disc herniation, intractable back pain (1) Lumbar herniated disc Diagnosis: Principal ICD Code: M51.26 (2) Lumbar radiculopathy Diagnosis: Secondary ICD Code: M54.16 (3) Neuropathy of lower extremity Diagnosis: Secondary ICD Code: G57.90 Brief History 81-year-old male previously seen by the undersigned in 2013 at which time he underwent a left L3-4 far lateral approach for foraminotomy and foraminal disc herniation. He initially did well following surgery. However approximately 3 months ago he began to experience recurrent pain in the left lower extremity. He was seen by interventional pain management a couple months ago, but declined epidural steroid injections or other intervention since ceased did not help prior to his last surgery. He was in the emergency room approximately 3 days ago. At that time admission and surgical intervention were offered, however he elected to continue outpatient conservative treatment. He returns to the emergency room on 11/14/2016 with persistent severe left lower extremity pain which is not controlled with medications. No complaint of fevers chills sweats No bowel or bladder dysfunction No pain weakness or numbness or paresthesias in the upper extremities CBC/BMP: 11/14/16 1301 11/14/16 1301 Significant Findings Laboratory Tests Test 11/14/16 13:01 Red Blood Count 3.90 MIL/MM3 (4.50-5.90) Hemoglobin 12.9 GM/DL (13.0-17.0) Hematocrit 37.1 % (39.0-51.0) Neutrophils (%) (Auto) 72.5 % (16.0-70.0) Monocytes (%) (Auto) 11.3 % (0.0-8.0) Chloride Level 108 MEQ/L (98-107) Estimat Glomerular Filtration 57 ML/MIN (>89) Rate Random Glucose 130 MG/DL (74-106) Imaging At least moderate left L4 5 and L3 4 foraminal stenosis related to disc displacement and facet and ligament hypertrophy Lumbar Spine MRI 11/15/16 0000 Signed Impressions: Service Date/Time: Tuesday, November 15, 2016 08:18 - CONCLUSION: 1. Degenerative changes are noted as described above. Geronimo Caban MD PE at Discharge Awake and alert Speech clear and appropriate Hard of hearing Follows commands well Reasonable judgment and insight No evidence of anxiety or depression Pain distribution is primarily left L3-4. Left lower extremity motor decreased to approximately 2+/5 in quadriceps and tibialis anterior with 3/5 left extensor hallucis longus, normal left iliopsoas and hamstrings and gastrocsoleus Strength normal in the right lower extremity major flexion and extension groups Hospital Course Patient admitted through the emergency room with severe intractable left gluteal , lateral hip and anterior medial thigh pain. Follow-up MRI obtained which reveals new left L4 5 foraminal disc displacement with at least moderate stenosis and recurrent left L3 4 foraminal disc herniation. Patient's examination reveals significant left L5 motor deficit, not consistent with MRI findings-possible neuropathy. Patient indicates that the left lower extremity motor deficit has been present for several months. Discussed at length with the patient. Continuing gabapentin. Dilaudid 2 mg tablets for breakthrough pain He is in agreement with home with already arranged home health care 3 times a week through the [facility] He will be scheduled on an elective outpatient basis for surgery. Pt Condition on Discharge: Stable Discharge Disposition: Discharge Home Discharge Instructions DIET: Follow Instructions for: As Tolerated, No Restrictions ACTIVITIES You can perform: Weight Bearing As Em Activities to Avoid: Lifting/Bending, Strenuous Activity New Medications: Hydrocodone-Acetaminophen (Hydrocodone-Acetaminophen) 10-325 mg Tab 1 TAB PO Q6H PRN PAIN #90 Ref 0 TAB Hydromorphone (Dilaudid) 2 Mg Tab 2 MG PO Q4H PRN PAIN SCALE 6 TO 10 #60 Ref 0 TAB Continued Medications: Cholecalciferol (D3) 1,000 Unit Cap 2000 Clindamycin Topical (Clindamycin Topical) 1% Soln #60 Cyanocobalamin (B12) 1,000 Mcg Tab Folic Acid (Folic Acid) 400 Mcg Tab 400 MCG PO DAILY Nutritional Supplement Ref 0 TAB Gabapentin (Gabapentin) 600 Mg Tab 600 MG PO TID #90 Ref 0 TAB Hydrocodone-Acetaminophen (Lortab) 5-325 Mg Tab 1 TAB PO Q8HR PRN PAIN #10 Ref 0 TAB Metronidazole Topical (Metronidazole Topical) 0.75 % Gel #45 Metronidazole Topical (Metronidazole Topical) 0.75 % Cream #45 Pancrelipase (Creon) 24,000-76,000-120,000 Units Cap #270 Paroxetine (Paroxetine) 30 Mg Tab 30 MG PO DAILY #30 Ref 0 TAB Ramipril (Ramipril) 10 Mg Cap 10 MG PO DAILY #30 Ref 0 CAP Simvastatin (Simvastatin) 20 Mg Tab 20 MG PO DAILY Cholesterol Management #30 Ref 0 TAB Trazodone (Trazodone) 150 Mg Tab #45 Discontinued Medications: Tramadol (Tramadol) 50 Mg Tab 50 MG PO Q4H PRN PAIN Ref 0 TAB Tyson Medley MD November 15, 2016 14:30
[2016-11-15] MEDS ORDERED: HYDROmorphone HCL 2 MG TAB PO PRN (15:00)
[2016-11-15] MEDS ORDERED: LIPASE/PROTEASE/AMYLASE (24,000/76,000/120,000) CAP PO SCH (18:00)
[2016-11-15] MEDS ORDERED: GABAPENTIN 300 MG CAP PO SCH (18:00)
[2016-11-16] MEDS ORDERED: PRAVASTATIN SOD 40 MG TAB PO SCH (09:00)
== END 2016-11-15 15:41 | disposition home or self-care (01) | DRG 552 ==
LOC: NEPE 12:18 → NEDA 15:00 → N05A 17:25
PROVIDERS: ADMIT Neurological Surgery; ATTEND Neurological Surgery
DX: M51.16 Intervertebral disc disorders with radiculopathy, lumbar region (principal); K90.0 Celiac disease; J44.9 Chronic obstructive pulmonary disease, unspecified; I10 Essential (primary) hypertension; E78.5 Hyperlipidemia, unspecified; G57.90 Unspecified mononeuropathy of unspecified lower limb; F17.210 Nicotine dependence, cigarettes, uncomplicated; Z85.46 Personal history of malignant neoplasm of prostate
CPT/HCPCS: 72158; 80048; 85025; 85610; 85730; 94150; 96374; 96375; 99283; A9579; J2270; J2405

== ENCOUNTER → 2016-12-14 | Outpatient (CLI) | payer MEDICARE, OTHER ==
[~2016-12-14] MED LIST changes: -B-1210005 PO; -D32000TA PO; +DILA2TAB2 PO; -FOLI400T30 PO; -GABA300C5; +HYDR-3583 PO; -HYDR10SO PO; -PARO20TA PO; -PARO20TA2; -RAMI10CA35 PO; -TRAM50TA PO; -TRAZ150T2 PO; -ULTR50TA PO; -ZOCO40TA PO
[2016-12-14 13:13] LABS: HEMATOCRIT 39.8 % (39.0-51.0); MEAN CELL VOLUME 95.8 FL (80.0-100.0); MEAN CORPUSCULAR HEMOGLOBIN 32.9 PG (27.0-34.0); MEAN CORPUSCULAR HGB CONC 34.4 % (32.0-36.0); PLATELET COUNT 219 TH/MM3 (150-450); RED BLOOD COUNT 4.15 MIL/MM3 (4.50-5.90); RED CELL DISTRIBUTION WIDTH 12.4 % (11.6-17.2); REVIEW FLAG FINAL; WHITE BLOOD COUNT 12.1 TH/MM3 (4.0-11.0)
== END ==
LOC: PLAB 10:58
PROVIDERS: ATTEND Urology
DX: E29.1 Testicular hypofunction (principal)
CPT/HCPCS: 36415; 84402; 84403; 85027

== ENCOUNTER → 2017-01-05 | Outpatient (CLI) | payer MEDICARE, OTHER ==
[2017-01-05 13:20] LABS: HEMATOCRIT 39.7 % (39.0-51.0); MEAN CELL VOLUME 95.9 FL (80.0-100.0); MEAN CORPUSCULAR HEMOGLOBIN 32.8 PG (27.0-34.0); MEAN CORPUSCULAR HGB CONC 34.2 % (32.0-36.0); PLATELET COUNT 234 TH/MM3 (150-450); RED BLOOD COUNT 4.14 MIL/MM3 (4.50-5.90); RED CELL DISTRIBUTION WIDTH 12.9 % (11.6-17.2); REVIEW FLAG FINAL
[2017-01-05 13:55] LABS: ANION GAP 8 MEQ/L (5-15); AST (GOT) 13 U/L (15-37); BICARBONATE 25.6 MEQ/L (21.0-32.0); BLOOD UREA NITROGEN 29 MG/DL (7-18); CHLORIDE 104 MEQ/L (98-107); GLOMERULAR FILTRATION RATE 53 ML/MIN (>89); GLUCOSE,FASTING 158 MG/DL (74-99); POTASSIUM 4.6 MEQ/L (3.5-5.1); SODIUM (NA) 138 MEQ/L (136-145)
[2017-01-05 14:02] LABS: ALKALINE PHOSPHATASE 84 U/L (45-117); ALT (GPT) 24 U/L (12-78); HDL CHOLESTEROL 43.8 MG/DL (40.0-60.0); LDL CHOLESTEROL 91 MG/DL (0-99); LDL CHOLESTEROL DIRECT 99 MG/DL (0-99); TOTAL BILIRUBIN ADULT 0.5 MG/DL (0.2-1.0)
[2017-01-05 18:28] LABS: HEMOGLOBIN A1a 1.2 %; HEMOGLOBIN A1b 2.5 %; HEMOGLOBIN Ao 80.3 %; HEMOGLOBIN LA1C 2.7 %; HEMOGLOBIN P3 6.3 %
== END ==
LOC: PLAB 11:15
PROVIDERS: ATTEND Family Medicine
DX: I12.9 Hypertensive chronic kidney disease with stage 1 through stage 4 chronic kidney disease, or unspecified chronic kidney disease (principal); N18.3 Chronic kidney disease, stage 3 (moderate); E11.22 Type 2 diabetes mellitus with diabetic chronic kidney disease; E78.2 Mixed hyperlipidemia
CPT/HCPCS: 36415; 80053; 80061; 83036; 83721; 85027

== ENCOUNTER 2017-02-04 11:35 | Inpatient (IN) | payer MEDICARE, OTHER ==
[~2017-02-04] VITALS: Ht 172.7 cm; Wt 79.8 kg
[~2017-02-04 11:35] MED LIST changes: -CLIN1SOL; -CREON24; -CYAN1TAB24; -DILA2TAB2 PO; -FORT500T3; -HYDR-3533 PO; -HYDR-3583 PO; -METR0.752; -METR0.7537; -OXYC1CAP PO; -OXYC1TAB63; -PARO20TA2; -TRAZ150T75; -TRAZ1TAB45 PO; -ULTR50TA5 PO; -VITA10002 PO
[2017-02-04] MEDS ORDERED: TRAZ1TAB45 PO (13:10)
[2017-02-04] MEDS ORDERED: VITA10002 PO (13:10)
[2017-02-05] MEDS ORDERED: OXYC1CAP PO (09:31)
[2017-02-09] MEDS ORDERED: SODIUM CHLORID 0.9% 500 ML IV PRN (08:30)
[2017-02-09] MEDS ORDERED: CHLORHEXIDINE GLUCONATE 2 % 1 PACK (2 CLOTHS) TOPICAL PRN (08:30)
[2017-02-09] MEDS ORDERED: LACTATED RINGER'S 1000 ML IV PRN (08:30)
[2017-02-09] MEDS ORDERED: ceFAZolin 1,000 MG/NS 100 ML IV SCH ×2 (08:30)
[2017-02-09] MEDS ORDERED: METOPROLOL TARTRATE 25 MG TAB PO PRN (08:30)
[2017-02-09] MEDS ORDERED: INSULIN HUMAN REGULAR 1,000 UNITS/10 ML VIAL SQ PRN (08:30)
[2017-02-09] MEDS ORDERED: POVIDONE IODINE 5% (ANTISEPSIS KIT) 4 APPLICATIONS EACH NARE PRN (08:30)
[2017-02-09 09:00] VITALS: BP 137/66; PULSE 78; RESP 18; TEMP 98.3; O2SAT 98
[2017-02-09] MEDS ORDERED: LACTATED RINGER'S 1000 ML INJ 1,000 ML IV SCH (09:00)
[2017-02-09] MEDS ORDERED: MORPHINE SULFATE 4 MG/ML INJ ONE (11:17)
[2017-02-09] MEDS ORDERED: VANCOMYCIN HCL 1000 MG VIAL ONE (11:23)
[2017-02-09] MEDS ORDERED: GENTAMICIN SULFATE 80 MG/2 ML VIAL ONE (11:24)
[2017-02-09] MEDS ORDERED: GELFOAM SIZE 100 ONE (11:24)
[2017-02-09] MEDS ORDERED: THROMBIN (TOPICAL) 5,000 UNIT VIAL ONE (11:24)
[2017-02-09] MEDS ORDERED: ceFAZolin INJ 1,000 MG VIAL ONE (11:24)
[2017-02-09] MEDS ORDERED: ePHEDrine/NS 25 MG/5 ML SYR IV ONE (12:00)
[2017-02-09] MEDS ORDERED: SODIUM CHLOR 0.9% (EXCEL) INJ 250 ML IV ONE (12:00)
[2017-02-09] MEDS ORDERED: PHENYLEPH/NS 1000 MCG/10 ML SYR IV ONE (12:00)
[2017-02-09] MEDS ORDERED: SOD CH 0.9%(ARTERIAL)500ML INJ 500 ML I-ARTERIAL ONE (12:00)
[2017-02-09] MEDS ORDERED: LACTATED RINGER'S 1000 ML INJ 1,000 ML IV ONE (12:00)
[2017-02-09] MEDS ORDERED: PROPOFOL 200 MG/20 ML AMP IV ONE (12:00)
[2017-02-09] MEDS ORDERED: ACETAMINOPHEN 1000 MG/100 ML VIAL IV ONE (12:11)
[2017-02-09] MEDS ORDERED: MIDAZOLAM HCL 2 MG/2 ML VIAL ONE (12:11)
[2017-02-09] MEDS ORDERED: DEXAMETHASONE SOD PHOS 4 MG/ML VIAL ONE (12:12)
[2017-02-09] MEDS ORDERED: FAMOTIDINE 20 MG/2 ML VIAL ONE (12:12)
[2017-02-09] MEDS ORDERED: fentaNYL CITRATE 250 MCG/5 ML AMP ONE ×2 (12:12→16:51)
[2017-02-09] MEDS ORDERED: LIDOCAINE 1%/EPINEPHrine 1:100,000 SOLN 30 ML VIAL ONE (14:19)
[2017-02-09] MEDS ORDERED: BUPIVACAINE LIPOSO PF 1.3% INJ 20 ML, BUPIVACAINE PF 0.25% INJ 20 ML in SODIUM CHLORIDE... P-ARTICULR SCH (19:00)
[2017-02-09] MEDS ORDERED: ceFAZolin INJ 1,000 MG VIAL IV ONE (19:09)
[2017-02-09] MEDS ORDERED: DO NOT ADM ANY ANTICOAGULANT DRUGS PRN (19:52)
[2017-02-09] MEDS ORDERED: ONDANSETRON HCL 4 MG/2 ML VIAL IV PRN (20:00)
[2017-02-09] MEDS ORDERED: SODIUM CHLORIDE 0.9% FLUSH 5 ML FLUSH IVF PRN (20:00)
[2017-02-09] MEDS ORDERED: HYDROmorphone HCL PF 1 MG/ML VIAL IV PRN ×2 (20:00)
[2017-02-09] MEDS ORDERED: oxyCODONE/ACETAMINOPHEN 5 MG/325 MG TAB PO PRN (20:00)
[2017-02-09] MEDS ORDERED: NALOXONE HCL 0.4 MG/ML AMP IV PRN (20:00)
[2017-02-09] MEDS: D5-1/2 NS + KCL 20 MEQ INJ 1,000 ML IV SCH (20:05)
--- NOTE | 2017-02-09 20:25 | RADRPT ---
EXAM DATE/TIME: 02/09/2017 14:28 [facility] COMPARISON: MRI LUMBAR SPINE W & W/O CONTRAST, November 15, 2016, 8:18. INDICATIONS : L5-S1 Fusion. MEDICAL HISTORY : Hypertension. Chronic obstructive pulmonary disease. Carcinoma, prostatic. Smoker. Arthritis. SURGICAL HISTORY : Tonsillectomy. ENCOUNTER: Initial ACUITY: 1 day PAIN SCORE: Non-responsive. LOCATION: Lumbar spine. FINDINGS: Changes of fusion procedure with interbody and posterior instrumentation noted at L5/S1. There are ch ronic L5 pars defects and a few millimeters of residual appearing L5/S1 spondylolisthesis. No evidenc e of an acute abnormality. CONCLUSION: L5/S1 fusion as above. No evidence of an acute complication. Vini Colin MD on February 09, 2017 at 20:22 Board Certified Radiologist. This report was verified electronically.
[2017-02-09] MEDS ORDERED: PILL SPLITTER OTHER PRN (20:30)
--- NOTE | 2017-02-09 20:30 | PD.OP ---
Operative Report Date of Surgery: Feb 09, 2017 Preoperative Diagnosis: (1) Lumbar radiculopathy (2) Lumbar herniated disc (3) Spondylolisthesis of lumbar region Postoperative Diagnosis: (1) Lumbar radiculopathy (2) Lumbar herniated disc (3) Spondylolisthesis of lumbar region Procedure: 1. Left L5-S1 transforaminal lumbar interbody fusion, PEEK cage, lamina autograft and demineralized bone matrix. 2. Left L5-S1 foraminal and extraforaminal discectomy-resection herniated nucleus pulposis for left L5 nerve decompression 3. Bilateral L5-S1 posterior instrumentation with pedicle screw fixation Anesthesia: Gen. Surgeon: Tyson Medley Business Mail Entry Clerk(s): Johnnie Mckeon Operation and Findings: Findings: Prominent left L5-S1 foraminal herniated nucleus pulposus with significant left L5 nerve compression. Due to the significance of the foraminal disc herniation on the correspondence with the patient's symptoms, it was elected not to proceed with the left L3 4 and L4 5 foraminotomies . It is felt that the patient can be monitored for resolution of his symptoms. If necessary further tests including possible EMG and nerve blocks may be requested prior to proceeding with further neural decompressive procedures if symptoms persist. Procedure in detail The patient was brought to the operating room and general endotracheal anesthesia induced without difficulty Lines were established per Anesthesia Sequential compression devices were in place The patient was positioned prone on the concentric Malcom table with the side bolsters and all extremities appropriately padded Leads for intraoperative neuro monitoring were placed prior to positioning and a baseline study obtained Appropriate timeout procedure was performed with all personnel present and in agreement The lumbar region was shaved with clippers and sterilely prepped and draped 1% Xylocaine with epinephrine was used for local infiltration over the incision site which was made approximately 5 cm lateral to the midline at the bilateral bilateral L5-S1 level and carried sharply down to the fascia. The fascia was sharply incised and finger dissection was used to separate the normal intermuscular plane at the bilateral L5-S1 level, allowing direct palpation of the junction of the and pedicle and transverse process on each side. The entry point for the pedicle screws were determined by anatomic and radiographic landmarks. Using AP and lateral C-arm imaging, the Jamshidi needle was guided through the bilateral L5 and S1 pedicle. The intraoperative C-arm imaging was used to verify appropriate Jamshidi needle placement. The wires were then placed through the Jamshidi needle cannulas, and the cannula was withdrawn. The wires were temporarily clipped away from the operative field. On the left side Gallardo elevator was used for subperiosteal elevation of paraspinous musculature and fascia away from the left L5-S1 facet and lateral lamina. The deep self-retaining retractor was placed The appropriate levels were verified with intraoperative C-arm The microscope was moved into place and used for the remainder of the procedure including the closure The TPS drill with a 5 mm bone bur followed by the Kerrison rongeur was used to remove the left L5-S1 facet and fractured pars intra-articularis along with the lateral aspect of the left L5 lamina. Hypertrophied ligamentum flavum was elevated away from the thecal sac and exiting left L5 and S1 nerve roots with the thin ligament dissector and resected with a 15 blade knife and Kerrison rongeur. The thecal sac and exiting nerve root were freed up from surrounding adhesions with the microdissectors and gently retracted medially revealing the underlying disc and annulus. There was a prominent subannular disc herniation extending from the left L5-S1 foraminal out to the extraforaminal region. There was significant impingement on the overlying exiting L5 nerve root. The annulus was incised with the 11 blade knife and discectomy performed with pituitary biopsy forceps and straight and angled curettes. The reverse curette and thin ligament dissectors were used to push the displaced foraminal disc herniation and annulus away from the exiting L5 nerve root and the additional disc fragments were removed moved with the pituitary biopsy forceps. The endplate scrapers were used to decorticate the endplates and any remaining debris was removed with the antibiotic irrigation and suction and pituitary biopsy forceps The appropriate size 8 x 10 mm lordotic PEEK cage was packed with retained lamina cancellus autograft And a small amount of demineralized bone matrix The cage was placed at the L5-S1 level with a good fit of the cage. The placement was checked under the microscope and with intraoperative C-arm and felt to be satisfactory. The thecal sac and nerve roots were probed with the long blunt nerve hook and felt to be well decompressed The cannulated 5.5 mm tap was then used to prepare the pedicle screw sites on each side, with the dilators used to protect the surrounding tissue. The appropriate length Spine Wave Sniper percutaneous cannulated pedicle screw attached to the MIS extenders were placed into the bilateral L4 and L5 pedicle using the existing guidewires which were then removed. Pedicle screw placement was checked with intraoperative C-arm imaging and felt to be satisfactory. The percutaneous rods were placed across the pedicle screws on each side. The locking caps were secured with the torque wrench and anti-torque device Compression and alignment were achieved as necessary with the rods and reducers. The entire construct was checked with intraoperative C-arm and felt to be satisfactory The region was well irrigated with antibiotic irrigation The posterior lateral structures at the bilateral L4 5 levels were decorticated with the TPS drill The shavings were left in place, to which was added the remaining autograft and allograft bone which was firmly packed in place for the posterior lateral fusion. Bleeding was carefully controlled with the bipolar forceps. Both incision sites were well irrigated with antibiotic irrigation at each layer of closure. The closure was performed with 0 Vicryl interrupted for the deep and superficial fascia, with 3-0 Vicryl for the subcutaneous closure and 4-0 Vicryl running subcuticular closure. Dressings sterile Mastisol, Steri-Strips and Primapore was placed The patient was turned into supine position and taken to recovery room in stable condition All counts were correct at the end of the case Estimated blood loss was 100 cc No specimen was sent to pathology Neuro monitoring was stable during the procedure Tyson Medley MD Feb 09, 2017 20:30
[2017-02-09] MEDS: SODIUM CHLORIDE 0.9% FLUSH 5 ML FLUSH IVF SCH (21:00)
[2017-02-09] MEDS: traZODone HCL 50 MG TAB PO SCH (21:00)
[2017-02-09] MEDS: DOCUSATE SODIUM 100 MG CAP PO SCH (21:00)
[2017-02-09 21:38] VITALS: BP 125/59; PULSE 71; RESP 18; TEMP 98; O2SAT 95
[2017-02-09 22:30] VITALS: BP 151/69; PULSE 92; RESP 19; TEMP 96.7; O2SAT 97
--- NOTE | 2017-02-09 23:59 | RADRPT ---
EXAM DATE/TIME: 02/09/2017 23:25 [facility] COMPARISON: MRI LUMBAR SPINE W & W/O CONTRAST, November 15, 2016, 8:18. SPINE LUMBAR LTD (AP & LAT), February 09, 2017, 14:28. INDICATIONS : Patient fell. Post op lumbar fusion today. RADIATION DOSE: 35.86 CTDIvol (mGy) MEDICAL HISTORY : Carcinoma, prostate. Hypertension. Chronic obstructive pulmonary disease. SURGICAL HISTORY : Discectomy, lumbar. ENCOUNTER: Initial ACUITY: 1 day PAIN SCALE: 10/10 LOCATION: lumbar TECHNIQUE: Volumetric scanning of the lumbar spine was performed. Multiplanar reconstructions in the sagittal, coronal and oblique axial planes were performed. Using automated exposure control and adjustment of the mA and/or kV according to patient size, radiation dose was kept as low as reasonably achievable t o obtain optimal diagnostic quality images. DICOM format image data is available electronically for review and comparison. FINDINGS: There is normal alignment of the vertebral bodies of the lumbar spine preservation of vertebral body height. Transpedicular screws present bilaterally at L5 and S1; the hardware appears intact. The in terspace device at L5-S1 in orthotopic position. No fractures seen. Moderate disc bulging L2-3 with mild spinal stenosis, broad-based bulging of L3-4 and into the neural foramen bilaterally. The asymmetric epidural impression on the left side L4-5 measures 6 mm in AP d imension, similar in configuration to prior MR. Normal configuration of the thecal sac at L5-S1 with some soft tissue density within the neural foramina bilaterally. Greater than 5 cm cyst arising from the anterior lower pole right kidney with thin curvilinear calcif ication on the medial margin, Bosniak II lesion. CONCLUSION: No evidence of fracture, spondylolisthesis, or compression deformity. Intact hardware and orthotopic position to the interspace device at L5-S1. Nicolás Rivero MD on February 09, 2017 at 23:50 Board Certified Radiologist. This report was verified electronically.
[2017-02-10] VITALS (12 sets, daily range): BP systolic 130–167; BP diastolic 59–78; PULSE 76–93; RESP 13–30; TEMP 98.2–99.2; O2SAT 96–100
[2017-02-10] MEDS: METHOCARBAMOL 500 MG TAB PO PRN (02:11)
--- NOTE | 2017-02-10 05:19 | RADRPT ---
EXAM DATE/TIME: 02/10/2017 04:55 [facility] COMPARISON: No previous studies available for comparison. INDICATIONS : Trauma, fall. Abrasion to forehead. Patient altered mental status. RADIATION DOSE: 52.18 CTDIvol (mGy) MEDICAL HISTORY : Hypertension. Carcinoma, prostate. SURGICAL HISTORY : None. ENCOUNTER: Initial ACUITY: 1 day PAIN SCALE: 0/10 LOCATION: cranial TECHNIQUE: Multiple contiguous axial images were obtained of the head. Using automated exposure control and adj ustment of the mA and/or kV according to patient size, radiation dose was kept as low as reasonably a chievable to obtain optimal diagnostic quality images. DICOM format image data is available electro nically for review and comparison. FINDINGS: CEREBRUM: The ventricles are normal for age. No evidence of midline shift, mass lesion, hemorrhage or acute in farction. No extra-axial fluid collections are seen. POSTERIOR FOSSA: The cerebellum and brainstem are intact. The 4th ventricle is midline. The cerebellopontine angle i s unremarkable. EXTRACRANIAL: The visualized portion of the orbits is intact. Low margins cystic areas in the left osseous infraor bital rim. A right hearing aid device. SKULL: The calvaria is intact. No evidence of skull fracture. CONCLUSION: No acute findings in the brain. Nicolás Rivero MD on February 10, 2017 at 5:16 Board Certified Radiologist. This report was verified electronically.
[2017-02-10] MEDS: D5-1/2 NS + KCL 20 MEQ INJ 1,000 ML IV SCH ×2 (06:55→16:23)
[2017-02-10] MEDS: CHOLECALCIFEROL (VIT D3) 1000 UNIT TAB PO SCH (08:10)
[2017-02-10] MEDS: PANTOPRAZOLE SOD 40 MG DELAYED RELEASE TAB PO SCH (08:10)
[2017-02-10] MEDS: SODIUM CHLORIDE 0.9% FLUSH 5 ML FLUSH IVF SCH ×2 (08:10→21:00)
[2017-02-10] MEDS: GABAPENTIN 300 MG CAP PO SCH ×3 (08:10→17:30)
[2017-02-10] MEDS: CYANOCOBALAMIN 1,000 MCG TAB PO SCH (08:10)
[2017-02-10] MEDS: PARoxetine HCL 20 MG TAB PO SCH (08:10)
[2017-02-10] MEDS: DOCUSATE SODIUM 100 MG CAP PO SCH (08:10)
[2017-02-10] MEDS: FOLIC ACID 1 MG TAB PO SCH (08:10)
--- NOTE | 2017-02-10 09:11 | HHI.NSPN ---
(Juan Francisco Finney) History Chief Complaint: Back pain (Juan Francisco Finney) Interval History 02/09: The patient presented to [facility] to undergo a left L5-S1 transforaminal lumbar interbody fusion w/cage, foraminal & extraforaminal discectomy and bilateral L5-S1 posterior instrumentation & screw fixation for lumbar radiculopathy. Post-operatively the patient was admitted to a regular med /surg floor. During the night the patient became confused and got up out of bed on his own and fell, striking his forehead, left shoulder and back. A stat CT lumbar spine was done w/o any acute findings other than post-operative findings with instrumentation in good position. He was transferred to the [facility] for further management. During the night he became increasingly more confused and a stat CT brain was done which was unremarkable for any acute findings. He was given 0.5 mg hydromorphone for pain due to concerns of over sedating him. 02/10: The patient is sitting in a chair when seen this morning. He is complaining of back pain. He is still confused and keeps repeating that he needs explicit instructions on what to do. It was explained to him a several times he was staying in the hospital and what the plan was but he would again ask about it. (Juan Francisco Finney) System Review Comments Constitutional: Patient denies any fever or chills. HEENT: Patient complains of pain to the forehead where he struck it. Respiratory: Patient denies any shortness of breath or productive cough. Cardiovascular: Patient denies any chest pain, palpitations or irregular heartbeat. Gastrointestinal: Patient denies any abdominal pain, nausea, vomiting or incontinence of stool. Genitourinary: Patient denies any incontinence of urine but the Hendrickson was removed this morning. Musculoskeletal: Patient complains of pain to the right lower back. Integumentary: Patient has surgical incisions to the back. He denies any rashes , ulcerations or other lesions. Neurologic: Patient denies any headache, dizziness, numbness or tingling. Psychiatric: Nursing reports that the patient is confused. (Juan Francisco Finney) Exam Results Vital Signs Date Time Temp Pulse Resp B/P Pulse Ox O2 Delivery O2 Flow Rate FiO2 02/10/17 08:00 93 02/10/17 08:00 98.7 25 157/71 96 02/10/17 07:00 Room Air 02/10/17 00:30 2.00 Intake and Output 02/09/17 02/09/17 02/10/17 08:00 16:00 00:00 Intake Total 1900 ml Output Total 500 ml Balance 1400 ml (Juan Francisco Finney) Physical Examination GENERAL: Patient is awake & alert, readily interacts, affect essentially normal. SKIN: Warm & dry, left forehead contusion, posterior left shoulder abrasion and bilateral lumbar paraspinal surgical incisions w/intact dressings. HEENT: Normocephalic, left forehead contusion mildly TTP, PERRLA, EOMI. NECK: Midline cervical spine NTTP, full AROM w/o pain, no JVD, trachea midline. CARDIOVASCULAR: S1S2 w/RRR w/o M/G/R, radial & pedal pulses 2+ bilaterally, capr refill < 2 sec, no pedal edema. Monitor is sinus rhythm w/o any ectopy noted. RESPIRATORY: CTAB w/o W/R/R, equal excursion, nonlaboured, on RA. GASTROINTESTINAL: Abdomen soft, nontender, positive bowel sounds. MUSCULOSKELETAL: RIOS w/o difficulty, no evident deformity or clubbing. Abrasion over left scapula NTTP. LSO brace in place, bilateral lumbar paraspinal surgical incisions w/intact dressings w/o any evident shadowing, no evident erythema or streaking, TTP just lateral of right paraspinal surgical incision, no midline thoracolumbar tenderness. NEUROLOGICAL: AAOx1 (person only). Speech clear but confused, repetitively saying same thing even though explained to him several times. PERRLA, EOMI. Sensation intact to light touch to BLE. Motor strength 5/5 to all major flexion & extension muscle groups BLE. (Juan Francisco Finney) Lab, Micro, Other Results Recent Impressions Head CT 02/10/17 0000 Signed Impressions: Service Date/Time: WednesdayFebruary 10, 2017 04:55 - CONCLUSION: No acute findings in the brain. Nicolás Rivero MD Lumbar Spine X-Ray 02/09/17 0000 Signed Impressions: Service Date/Time: Thursday, February 09, 2017 14:28 - CONCLUSION: L5/S1 fusion as above. No evidence of an acute complication. Vini Colin MD Lumbar Spine CT 02/09/17 0000 Signed Impressions: Service Date/Time: Thursday, February 09, 2017 23:25 - CONCLUSION: No evidence of fracture, spondylolisthesis, or compression deformity. Intact hardware and orthotopic position to the interspace device at L5-S1. Nicolás Rivero MD // 06:00 18:00 06:00 18:00 06:00 18:00 Intake Total 2482 ml Output Total 1775 ml Balance 707 ml Intake Oral 100 ml IV Total 482 ml Other 1900 ml Output Urine Total 1675 ml Estimated Blood Loss 100 ml # Bowel Movements 1 Laboratory Tests Test 02/09/17 02/09/17 08:45 23:50 Blood Type A NEGATIVE Antibody Screen NEGATIVE Blood Bank Comment Nasal Screen MRSA (PCR) MRSA NOT DETECTED Vital Signs Date Time Temp Pulse Resp B/P Pulse Ox O2 Delivery O2 Flow Rate FiO2 02/10/17 08:00 93 02/10/17 08:00 98.7 93 25 157/71 96 02/10/17 07:00 97 Room Air 02/10/17 06:00 88 02/10/17 04:00 99.2 86 30 167/76 98 02/10/17 04:00 86 02/10/17 02:00 76 02/10/17 00:30 Nasal Cannula 2.00 02/10/17 00:00 88 02/10/17 00:00 98.2 88 13 163/78 100 02/09/17 22:30 96.7 92 19 151/69 97 02/09/17 21:52 Nasal Cannula 2.00 02/09/17 21:38 98.0 71 18 125/59 95 02/09/17 21:30 75 20 141/64 99 Nasal Cannula 3 02/09/17 21:00 76 22 133/68 100 Nasal Cannula 3 02/09/17 20:45 80 24 114/65 100 Nasal Cannula 3 02/09/17 20:30 79 22 120/58 99 Nasal Cannula 3 02/09/17 20:15 77 21 107/59 100 Simple Mask 6 02/09/17 20:00 80 20 102/55 99 Simple Mask 6 02/09/17 19:50 98.0 85 14 95/54 99 Simple Mask 6 02/09/17 09:00 98.3 78 18 137/66 98 (Juan Francisco Finney) Medical Decision Making Impression and Plan (1) Lumbar radiculopathy (2) Lumbar herniated disc (3) Spondylolisthesis of lumbar region Altered mental status, most likely r/t anaesthesia Fall 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 POD #1 () s/p: 1. Left L5-S1 transforaminal lumbar interbody fusion, PEEK cage, lamina autograft and demineralized bone matrix. 2. Left L5-S1 foraminal and extraforaminal discectomy-resection herniated nucleus pulposis for left L5 nerve decompression 3. Bilateral L5-S1 posterior instrumentation with pedicle screw fixation Plan: Continue neuro checks. Stat CT brain for any worsening in mental status. Mobilise patient w/assistance. LSO brace on when OOB. PT eval & tx. Will start tramadol 50 mg PO q4h PRN pain 3-5. (Juan Francisco Finney) Attending Statement I have personally seen and examined the patient on the date of this note. Pertinent documentation and study results have been reviewed by the undersigned. I have personally developed the treatment plan and performed medical decision making. Agree with findings, exam, and treatment plan as noted above. Patient fell last evening, confused. More alert and oriented today. Speech mostly appropriate. Mild confusion. Follows commands well. Left iliopsoas and tibialis anterior 3/5-stable compared to preoperative. Otherwise normal strength all extremities Dressing dry Continue physical therapy with LSO brace. (Tyson Medley MD) Juan Francisco Finney Feb 10, 2017 09:11 Tyson Medley MD Feb 11, 2017 18:37
[2017-02-10] MEDS: RAMIPRIL 5 MG CAP PO SCH (10:09)
[2017-02-10 13:17] LABS: AUTOMATED NEUTROPHIL # 12.1 TH/MM3 (1.8-7.7); BASOPHIL % 0.2 % (0.0-2.0); EOSINOPHIL % 0.1 % (0.0-4.0); HEMATOCRIT 36.5 % (39.0-51.0); HEMO FLAGS DIFF FINAL; LYMPH % 6.8 % (9.0-44.0); MEAN CORPUSCULAR HEMOGLOBIN 32.8 PG (27.0-34.0); MEAN CORPUSCULAR HGB CONC 34.2 % (32.0-36.0); MONO % 12.1 % (0.0-8.0); NEUT % 80.8 % (16.0-70.0); PLATELET COUNT 213 TH/MM3 (150-450); RED CELL DISTRIBUTION WIDTH 12.9 % (11.6-17.2)
[2017-02-10] MEDS: traMADol HCL 50 MG TAB PO PRN (13:34)
[2017-02-10 13:49] LABS: BICARBONATE 21.9 MEQ/L (21.0-32.0); POTASSIUM 4.2 MEQ/L (3.5-5.1)
[2017-02-11] VITALS: BP 130/59; PULSE 75; PULSE 76; RESP 26; TEMP 98.2; O2SAT 97
[2017-02-11] MEDS: traZODone HCL 50 MG TAB PO SCH ×2 (00:09→21:00)
[2017-02-11] MEDS: DOCUSATE SODIUM 100 MG CAP PO SCH ×3 (00:12→21:46)
[2017-02-11] MEDS: D5-1/2 NS + KCL 20 MEQ INJ 1,000 ML IV SCH ×2 (03:00→13:00)
[2017-02-11 04:00] VITALS: BP 104/53; PULSE 74; RESP 22; TEMP 99; O2SAT 96
[2017-02-11 08:00] VITALS: BP 96/50; PULSE 64; PULSE 65; RESP 19; TEMP 98.9; O2SAT 94
[2017-02-11] MEDS: SODIUM CHLORIDE 0.9% FLUSH 5 ML FLUSH IVF SCH ×2 (09:00→21:00)
[2017-02-11] MEDS: PANTOPRAZOLE SOD 40 MG DELAYED RELEASE TAB PO SCH (10:28)
[2017-02-11] MEDS: FOLIC ACID 1 MG TAB PO SCH (10:28)
[2017-02-11] MEDS: PARoxetine HCL 20 MG TAB PO SCH (10:28)
[2017-02-11] MEDS: CHOLECALCIFEROL (VIT D3) 1000 UNIT TAB PO SCH (10:28)
[2017-02-11] MEDS: RAMIPRIL 5 MG CAP PO SCH (10:28)
[2017-02-11] MEDS: GABAPENTIN 300 MG CAP PO SCH ×3 (10:28→17:44)
[2017-02-11] MEDS: CYANOCOBALAMIN 1,000 MCG TAB PO SCH (10:28)
[2017-02-11 11:48] LABS: HEMATOCRIT 34.7 % (39.0-51.0); MEAN CELL VOLUME 99.1 FL (80.0-100.0); MEAN CORPUSCULAR HEMOGLOBIN 32.9 PG (27.0-34.0); MEAN CORPUSCULAR HGB CONC 33.2 % (32.0-36.0); PLATELET COUNT 206 TH/MM3 (150-450); RED CELL DISTRIBUTION WIDTH 13.6 % (11.6-17.2); REVIEW FLAG FINAL; WHITE BLOOD COUNT 12.1 TH/MM3 (4.0-11.0)
[2017-02-11 12:00] VITALS: BP 121/56; PULSE 67; RESP 20; TEMP 98.4; O2SAT 98
[2017-02-11 12:09] LABS: BICARBONATE 27.1 MEQ/L (21.0-32.0); POTASSIUM 3.8 MEQ/L (3.5-5.1)
[2017-02-11 16:00] VITALS: BP 121/57; PULSE 70; RESP 20; TEMP 98.7; O2SAT 97
[2017-02-11 19:00] VITALS: BP 116/54; PULSE 74; RESP 16; TEMP 97.8; O2SAT 96
[2017-02-11] MEDS: traMADol HCL 50 MG TAB PO PRN (21:46)
[2017-02-12] VITALS: BP_SYST 128; BP_SYST 98; BP_DIAS 54; BP_DIAS 62; PULSE 69; RESP 18; TEMP 98; TEMP 98.9; O2SAT 91; O2SAT 97
[2017-02-12] MEDS: D5-1/2 NS + KCL 20 MEQ INJ 1,000 ML IV SCH ×4 (01:47→23:37)
[2017-02-12 04:00] VITALS: BP 139/68; PULSE 61; RESP 18; TEMP 98; O2SAT 94
[2017-02-12 08:00] VITALS: BP 160/66; PULSE 72; RESP 17; TEMP 97.5; O2SAT 96
[2017-02-12] MEDS: SODIUM CHLORIDE 0.9% FLUSH 5 ML FLUSH IVF SCH ×2 (08:54→20:22)
[2017-02-12] MEDS: CYANOCOBALAMIN 1,000 MCG TAB PO SCH (08:57)
[2017-02-12] MEDS: DOCUSATE SODIUM 100 MG CAP PO SCH ×2 (08:57→20:22)
[2017-02-12] MEDS: CHOLECALCIFEROL (VIT D3) 1000 UNIT TAB PO SCH (08:58)
[2017-02-12] MEDS: RAMIPRIL 5 MG CAP PO SCH (08:59)
[2017-02-12] MEDS: FOLIC ACID 1 MG TAB PO SCH (09:00)
[2017-02-12] MEDS: GABAPENTIN 300 MG CAP PO SCH ×3 (09:01→18:47)
[2017-02-12] MEDS: PARoxetine HCL 20 MG TAB PO SCH (09:02)
[2017-02-12] MEDS: PANTOPRAZOLE SOD 40 MG DELAYED RELEASE TAB PO SCH (09:02)
[2017-02-12 12:00] VITALS: BP 137/61; PULSE 72; RESP 17; TEMP 98.1; O2SAT 99
[2017-02-12 16:00] VITALS: BP 128/80; PULSE 74; RESP 17; TEMP 97.7; O2SAT 99
--- NOTE | 2017-02-12 16:01 | HHI.NSPN ---
(Juan Francisco Finney) History Chief Complaint: No complaints. (Juan Francisco Finney) Interval History 02/09: The patient presented to [facility] to undergo a left L5-S1 transforaminal lumbar interbody fusion w/cage, foraminal & extraforaminal discectomy and bilateral L5-S1 posterior instrumentation & screw fixation for lumbar radiculopathy. Post-operatively the patient was admitted to a regular med /surg floor. During the night the patient became confused and got up out of bed on his own and fell, striking his forehead, left shoulder and back. A stat CT lumbar spine was done w/o any acute findings other than post-operative findings with instrumentation in good position. He was transferred to the [facility] for further management. During the night he became increasingly more confused and a stat CT brain was done which was unremarkable for any acute findings. He was given 0.5 mg hydromorphone for pain due to concerns of over sedating him. 02/10: The patient is sitting in a chair when seen this morning. He is complaining of back pain. He is still confused and keeps repeating that he needs explicit instructions on what to do. It was explained to him a several times he was staying in the hospital and what the plan was but he would again ask about it. 02/12: The patient is laying in bed watching TV. He denies any complaints and says he feels the best he has in years. He states he doesn't think he will need any scripts because he doesn't have any pain. He also says he plans to do physical therapy at [facility]. (Juan Francisco Finney) System Review Comments Constitutional: Patient denies any fever or chills. HEENT: Patient denies any pain to the forehead.. Respiratory: Patient denies any shortness of breath or productive cough. Cardiovascular: Patient denies any chest pain, palpitations or irregular heartbeat. Gastrointestinal: Patient denies any abdominal pain, nausea, vomiting or incontinence of stool. Genitourinary: Patient denies any incontinence of urine. Musculoskeletal: Patient denies any pain to the back or extremities. Integumentary: Patient has surgical incisions to the back. He denies any rashes , ulcerations or other lesions. Neurologic: Patient denies any headache, dizziness, numbness or tingling. (Juan Francisco Finney) Exam Results Vital Signs Date Time Temp Pulse Resp B/P Pulse Ox O2 Delivery O2 Flow Rate FiO2 02/12/17 12:00 98.1 72 17 137/61 99 02/11/17 07:00 Room Air 02/10/17 11:12 21 02/10/17 00:30 2.00 Intake and Output 02/11/17 02/11/17 02/12/17 08:00 16:00 00:00 Intake Total 397 ml 761 ml Output Total 200 ml Balance 397 ml 761 ml -200 ml (Juan Francisco Finney) Physical Examination GENERAL: Patient is awake & alert, readily interacts, affect essentially normal. SKIN: Warm & dry, left forehead swelling resolved, posterior left shoulder abrasion and bilateral lumbar paraspinal surgical incisions w/intact steri- strips. HEENT: Normocephalic, left forehead contusion resolved, PERRLA, EOMI. NECK: Full AROM w/o pain, no JVD, trachea midline. CARDIOVASCULAR: S1S2 w/RRR w/o M/G/R, radial & pedal pulses 2+ bilaterally, capr refill < 2 sec, no pedal edema. RESPIRATORY: CTAB w/o W/R/R, equal excursion, nonlaboured, on RA. GASTROINTESTINAL: Abdomen soft, nontender, positive bowel sounds. MUSCULOSKELETAL: RIOS w/o difficulty, no evident deformity or clubbing. Abrasion over left scapula NTTP. LSO brace in place, bilateral lumbar paraspinal surgical incisions w/intact steri-strips, no evident erythema or streaking, minimally TTP to left paraspinal surgical incision which is mildly swollen, no midline thoracolumbar tenderness. NEUROLOGICAL: AAOx3. Speech clear & appropriate. Sensation intact to light touch to all extremities. Motor strength 5/5 to all major flexion & extension muscle groups. (Juan Francisco Finney) Medical Decision Making Impression and Plan (1) Lumbar radiculopathy (2) Lumbar herniated disc (3) Spondylolisthesis of lumbar region Altered mental status, most likely r/t anaesthesia Fall Lumbar haematoma on CT per Dr Medley Patient doing well post-operatively, mentally & neurologically intact. POD #3 () s/p: 1. Left L5-S1 transforaminal lumbar interbody fusion, PEEK cage, lamina autograft and demineralized bone matrix. 2. Left L5-S1 foraminal and extraforaminal discectomy-resection herniated nucleus pulposis for left L5 nerve decompression 3. Bilateral L5-S1 posterior instrumentation with pedicle screw fixation Plan: Continue neuro checks. Mobilise patient w/assistance. LSO brace on when OOB. PT eval & tx. (Juan Francisco Finney) Attending Statement The exam, history, and the medical decision-making described in the above note were completed with the assistance of the mid-level provider. I reviewed and agree with the findings presented. I attest that I had a [id number] encounter with the patient on the same day, and personally performed and documented my assessment and findings in the medical record. Mental status gradually improving-likely secondary to anesthesia, narcotics. Continue therapy with brace Home with home healthcare versus rehabilitation (Tyson Medley MD) Juan Francisco Finney Feb 12, 2017 16:01 Tyson Medley MD Apr 05, 2017 07:25
[2017-02-12 20:00] VITALS: BP 123/60; PULSE 66; RESP 18; TEMP 98.5; O2SAT 97
[2017-02-12] MEDS: traZODone HCL 50 MG TAB PO SCH (20:22)
[2017-02-13 04:00] VITALS: BP 142/63; PULSE 60; RESP 18; TEMP 97; O2SAT 94
[2017-02-13 08:30] VITALS: BP 135/62; PULSE 70; RESP 18; TEMP 98.1; O2SAT 99
[2017-02-13] MEDS: SODIUM CHLORIDE 0.9% FLUSH 5 ML FLUSH IVF SCH ×2 (09:00→21:00)
[2017-02-13] MEDS: RAMIPRIL 5 MG CAP PO SCH (09:00)
[2017-02-13] MEDS: PANTOPRAZOLE SOD 40 MG DELAYED RELEASE TAB PO SCH (09:24)
[2017-02-13] MEDS: GABAPENTIN 300 MG CAP PO SCH ×3 (09:24→17:47)
[2017-02-13] MEDS: CYANOCOBALAMIN 1,000 MCG TAB PO SCH (09:24)
[2017-02-13] MEDS: CHOLECALCIFEROL (VIT D3) 1000 UNIT TAB PO SCH (09:24)
[2017-02-13] MEDS: FOLIC ACID 1 MG TAB PO SCH (09:24)
[2017-02-13] MEDS: DOCUSATE SODIUM 100 MG CAP PO SCH ×2 (09:24→21:00)
[2017-02-13] MEDS: PARoxetine HCL 20 MG TAB PO SCH (09:25)
[2017-02-13] MEDS: oxyCODONE/ACETAMINOPHEN 10 MG/325 MG TAB PO PRN ×3 (09:28→22:12)
[2017-02-13 12:20] VITALS: BP 107/54; PULSE 70; RESP 18; TEMP 98.2; O2SAT 96
[2017-02-13 16:00] VITALS: BP 129/59; PULSE 69; RESP 17; TEMP 97.6; O2SAT 100
[2017-02-13] MEDS: D5-1/2 NS + KCL 20 MEQ INJ 1,000 ML IV SCH (16:39)
[2017-02-13 19:52] VITALS: BP 107/53; PULSE 65; RESP 18; TEMP 98.6; O2SAT 95
[2017-02-13] MEDS: traZODone HCL 50 MG TAB PO SCH (21:17)
[2017-02-14] VITALS: BP 108/52; PULSE 73; RESP 20; TEMP 98.3; O2SAT 94
[2017-02-14 04:00] VITALS: BP 113/56; PULSE 70; RESP 20; TEMP 99; O2SAT 94
[2017-02-14 07:45] VITALS: BP 118/59; PULSE 68; RESP 18; TEMP 98.5; O2SAT 95
[2017-02-14] MEDS: SODIUM CHLORIDE 0.9% FLUSH 5 ML FLUSH IVF SCH ×2 (09:00→22:06)
[2017-02-14] MEDS: GABAPENTIN 300 MG CAP PO SCH ×3 (09:13→17:18)
[2017-02-14] MEDS: DOCUSATE SODIUM 100 MG CAP PO SCH ×2 (09:13→22:07)
[2017-02-14] MEDS: CHOLECALCIFEROL (VIT D3) 1000 UNIT TAB PO SCH (09:13)
[2017-02-14] MEDS: RAMIPRIL 5 MG CAP PO SCH (09:13)
[2017-02-14] MEDS: PANTOPRAZOLE SOD 40 MG DELAYED RELEASE TAB PO SCH (09:13)
[2017-02-14] MEDS: FOLIC ACID 1 MG TAB PO SCH (09:13)
[2017-02-14] MEDS: PARoxetine HCL 20 MG TAB PO SCH (09:13)
[2017-02-14] MEDS: CYANOCOBALAMIN 1,000 MCG TAB PO SCH (09:13)
[2017-02-14] MEDS: D5-1/2 NS + KCL 20 MEQ INJ 1,000 ML IV SCH (11:00)
[2017-02-14 13:38] VITALS: BP 143/67; PULSE 68; RESP 18; TEMP 97.7; O2SAT 99
[2017-02-14 16:11] VITALS: BP 119/56; PULSE 71; RESP 17; TEMP 98.6; O2SAT 100
[2017-02-14 19:37] LABS: BLOOD, URINE TRACE (NEG); COMMENT (UR) CULT NOT INDICATED; CULTURE IF INDICATED CULT NOT INDICATED; GLUCOSE,URINE NEG (NEG); KETONE, URINE NEG (NEG); NITRITE,URINE NEG (NEG); SQUAMOUS EPITHELIAL CELL URINE <1 /hpf (0-5); URINE COLOR YELLOW (YELLW/STRAW)
[2017-02-14 20:00] VITALS: BP 127/60; PULSE 70; RESP 21; TEMP 98.8; O2SAT 95
[2017-02-14] MEDS: traZODone HCL 50 MG TAB PO SCH (22:07)
[2017-02-15 01:03] VITALS: BP 131/58; PULSE 63; RESP 20; TEMP 98.1; O2SAT 95
[2017-02-15 04:47] VITALS: BP 131/63; PULSE 68; RESP 20; TEMP 98.5; O2SAT 95
[2017-02-15 07:56] VITALS: BP 152/63; PULSE 70; RESP 18; TEMP 98.3; O2SAT 98
[2017-02-15] MEDS: SODIUM CHLORIDE 0.9% FLUSH 5 ML FLUSH IVF SCH ×2 (09:50→21:10)
[2017-02-15] MEDS: RAMIPRIL 5 MG CAP PO SCH (09:50)
[2017-02-15] MEDS: FOLIC ACID 1 MG TAB PO SCH (09:51)
[2017-02-15] MEDS: GABAPENTIN 300 MG CAP PO SCH ×3 (09:51→16:58)
[2017-02-15] MEDS: CYANOCOBALAMIN 1,000 MCG TAB PO SCH (09:51)
[2017-02-15] MEDS: D5-1/2 NS + KCL 20 MEQ INJ 1,000 ML IV SCH ×2 (09:51→16:32)
[2017-02-15] MEDS: CHOLECALCIFEROL (VIT D3) 1000 UNIT TAB PO SCH (09:51)
[2017-02-15] MEDS: PARoxetine HCL 20 MG TAB PO SCH (09:51)
[2017-02-15] MEDS: DOCUSATE SODIUM 100 MG CAP PO SCH ×2 (09:51→21:00)
[2017-02-15] MEDS: PANTOPRAZOLE SOD 40 MG DELAYED RELEASE TAB PO SCH (09:51)
[2017-02-15] MEDS: METHOCARBAMOL 500 MG TAB PO PRN ×2 (10:31→21:08)
[2017-02-15] MEDS: traMADol HCL 50 MG TAB PO PRN ×2 (10:31→21:08)
[2017-02-15 11:27] VITALS: BP 117/56; PULSE 66; RESP 18; TEMP 98.3; O2SAT 96
[2017-02-15 16:37] VITALS: BP 123/58; PULSE 74; RESP 18; TEMP 98.1; O2SAT 98
--- NOTE | 2017-02-15 16:52 | HHI.NSPN ---
(Juan Francisco Finney) History Chief Complaint: No complaints. (Juan Francisco Finney) Interval History 02/09: The patient presented to [facility] to undergo a left L5-S1 transforaminal lumbar interbody fusion w/cage, foraminal & extraforaminal discectomy and bilateral L5-S1 posterior instrumentation & screw fixation for lumbar radiculopathy. Post-operatively the patient was admitted to a regular med /surg floor. During the night the patient became confused and got up out of bed on his own and fell, striking his forehead, left shoulder and back. A stat CT lumbar spine was done w/o any acute findings other than post-operative findings with instrumentation in good position. He was transferred to the [facility] for further management. During the night he became increasingly more confused and a stat CT brain was done which was unremarkable for any acute findings. He was given 0.5 mg hydromorphone for pain due to concerns of over sedating him. 02/10: The patient is sitting in a chair when seen this morning. He is complaining of back pain. He is still confused and keeps repeating that he needs explicit instructions on what to do. It was explained to him a several times he was staying in the hospital and what the plan was but he would again ask about it. 02/12: The patient is laying in bed watching TV. He denies any complaints and says he feels the best he has in years. He states he doesn't think he will need any scripts because he doesn't have any pain. He also says he plans to do physical therapy at [facility]. 02/15: The patient is sitting in the chair watching TV this afternoon when seen. He has no complaints and denies any back pain. This practitioner spoke with Case Management who said he should be able to go anywhere he wants since he has Medicare and is 81 years old. The [facility] lia[facility] reviewed how the patient was doing with physical therapy and stated that he was to high functioning for them. (Juan Francisco Finney) System Review Comments Constitutional: Patient denies any fever or chills. HEENT: Patient says he is hard of hearing. He denies any other hearing or visual problem. Respiratory: Patient denies any shortness of breath or productive cough. Cardiovascular: Patient denies any chest pain, palpitations or irregular heartbeat. Gastrointestinal: Patient denies any abdominal pain, nausea, vomiting or incontinence of stool. Genitourinary: Patient denies any incontinence of urine. Musculoskeletal: Patient denies any pain to the back or extremities. Integumentary: Patient has surgical incisions to the back. He denies any rashes , ulcerations or other lesions. Neurologic: Patient denies any headache, dizziness, numbness or tingling. (Juan Francisco Finney) Exam Results Vital Signs Date Time Temp Pulse Resp B/P (MAP) Pulse Ox O2 Delivery O2 Flow Rate FiO2 02/15/17 16:37 98.1 74 18 123/58 (79) 98 02/11/17 07:00 Room Air Intake and Output 02/15/17 02/15/17 02/16/17 08:00 16:00 00:00 Intake Total 480 ml Output Total 700 ml 2 ml Balance -700 ml 478 ml (Juan Francisco Finney) Physical Examination GENERAL: Patient is awake & alert and watching TV, readily interacts, affect normal. SKIN: Warm & dry, posterior left shoulder abrasion healing w/o complication. HEENT: Normocephalic, atraumatic. NECK: Full AROM w/o pain, no JVD, trachea midline. CARDIOVASCULAR: S1S2 w/RRR w/o M/G/R, radial & pedal pulses 2+ bilaterally, cap refill < 2 sec, no pedal edema. RESPIRATORY: CTAB w/o W/R/R, equal excursion, nonlaboured, on RA. GASTROINTESTINAL: Abdomen soft, nontender, positive bowel sounds. MUSCULOSKELETAL: RIOS w/o difficulty, no evident deformity or clubbing. Abrasion over left scapula NTTP. LSO brace in place. NEUROLOGICAL: AAOx3. Speech clear & appropriate. Sensation intact to light touch to all extremities. Motor strength BUE & RLE 5/5 and LLE 4+/5 to all major flexion & extension muscle groups. (Parksley,Juan Francisco E. FOUNDER [employer] EXECUTIVE OFFICER) Medical Decision Making Impression and Plan (1) Lumbar radiculopathy (2) Lumbar herniated disc (3) Spondylolisthesis of lumbar region Altered mental status, most likely r/t anaesthesia, improved Fall Lumbar haematoma on CT per Dr Medley Patient continues to do well and is intact. POD #6 () s/p: 1. Left L5-S1 transforaminal lumbar interbody fusion, PEEK cage, lamina autograft and demineralized bone matrix. 2. Left L5-S1 foraminal and extraforaminal discectomy-resection herniated nucleus pulposis for left L5 nerve decompression 3. Bilateral L5-S1 posterior instrumentation with pedicle screw fixation Plan: Discussed plan of care with the patient. Discussed plan of care with Case Management & [facility]. Continue neuro checks. Mobilise patient w/assistance. LSO brace on when OOB. PT eval & tx. Patient able to be discharged once SNF for further rehab is arranged. (Juan Francisco Finney) Attending Statement The exam, history, and the medical decision-making described in the above note were completed with the assistance of the mid-level provider. I reviewed and agree with the findings presented. I attest that I had a [id number] encounter with the patient on the same day, and personally performed and documented my assessment and findings in the medical record. (Heron Gloria MD) Juan Francisco Finney Feb 15, 2017 16:52 Heron Gloria MD Feb 21, 2017 17:55
[2017-02-15 20:00] VITALS: BP 103/51; PULSE 66; RESP 18; TEMP 97.7; O2SAT 96
[2017-02-15] MEDS: traZODone HCL 50 MG TAB PO SCH (21:08)
[2017-02-16] VITALS: BP 107/54; PULSE 64; RESP 18; TEMP 97.4; O2SAT 96
[2017-02-16 05:57] VITALS: BP 124/59; PULSE 60; RESP 60; TEMP 98.7; O2SAT 18
[2017-02-16 08:05] VITALS: BP 134/63; PULSE 62; RESP 18; TEMP 98.1; O2SAT 95
[2017-02-16] MEDS: RAMIPRIL 5 MG CAP PO SCH (08:33)
[2017-02-16] MEDS: GABAPENTIN 300 MG CAP PO SCH ×3 (08:33→18:35)
[2017-02-16] MEDS: CHOLECALCIFEROL (VIT D3) 1000 UNIT TAB PO SCH (08:33)
[2017-02-16] MEDS: CYANOCOBALAMIN 1,000 MCG TAB PO SCH (08:33)
[2017-02-16] MEDS: DOCUSATE SODIUM 100 MG CAP PO SCH (08:34)
[2017-02-16] MEDS: PARoxetine HCL 20 MG TAB PO SCH (08:34)
[2017-02-16] MEDS: PANTOPRAZOLE SOD 40 MG DELAYED RELEASE TAB PO SCH (08:34)
[2017-02-16] MEDS: SODIUM CHLORIDE 0.9% FLUSH 5 ML FLUSH IVF SCH (08:34)
[2017-02-16] MEDS: FOLIC ACID 1 MG TAB PO SCH (08:34)
[2017-02-16] MEDS: traMADol HCL 50 MG TAB PO PRN (08:39)
[2017-02-16] MEDS: METHOCARBAMOL 500 MG TAB PO PRN (08:39)
[2017-02-16 12:03] VITALS: BP 121/59; PULSE 66; RESP 18; TEMP 97.6; O2SAT 96
--- NOTE | 2017-02-16 12:21 | HHI.NSPN ---
History Chief Complaint: No complaints. Interval History 02/09: The patient presented to [facility] to undergo a left L5-S1 transforaminal lumbar interbody fusion w/cage, foraminal & extraforaminal discectomy and bilateral L5-S1 posterior instrumentation & screw fixation for lumbar radiculopathy. Post-operatively the patient was admitted to a regular med /surg floor. During the night the patient became confused and got up out of bed on his own and fell, striking his forehead, left shoulder and back. A stat CT lumbar spine was done w/o any acute findings other than post-operative findings with instrumentation in good position. He was transferred to the [facility] for further management. During the night he became increasingly more confused and a stat CT brain was done which was unremarkable for any acute findings. He was given 0.5 mg hydromorphone for pain due to concerns of over sedating him. 02/10: The patient is sitting in a chair when seen this morning. He is complaining of back pain. He is still confused and keeps repeating that he needs explicit instructions on what to do. It was explained to him a several times he was staying in the hospital and what the plan was but he would again ask about it. 02/12: The patient is laying in bed watching TV. He denies any complaints and says he feels the best he has in years. He states he doesn't think he will need any scripts because he doesn't have any pain. He also says he plans to do physical therapy at [facility]. 02/15: The patient is sitting in the chair watching TV this afternoon when seen. He has no complaints and denies any back pain. This practitioner spoke with Case Management who said he should be able to go anywhere he wants since he has Medicare and is 81 years old. The [place] community relations liaison reviewed how the patient was doing with physical therapy and stated that he was to high functioning for them. 02/16: The patient is asleep in the chair when seen. He awakens to verbal stimuli and after that is awake and readily interacts. System Review Comments Constitutional: Patient denies any fever or chills. HEENT: Patient says he is hard of hearing. He denies any other hearing or visual problem. Respiratory: Patient denies any shortness of breath or productive cough. Cardiovascular: Patient denies any chest pain, palpitations or irregular heartbeat. Gastrointestinal: Patient denies any abdominal pain, nausea, vomiting or incontinence of stool. Genitourinary: Patient denies any incontinence of urine. Musculoskeletal: Patient says his back is "tender." He denies any pain or weakness to the extremities. Integumentary: Patient has surgical incisions to the back. He denies any rashes , ulcerations or other lesions. Neurologic: Patient denies any headache, dizziness, numbness or tingling. Exam Results Vital Signs Date Time Temp Pulse Resp B/P (MAP) Pulse Ox O2 Delivery O2 Flow Rate FiO2 02/16/17 12:03 97.6 66 18 121/59 (79) 96 Physical Examination GENERAL: Patient is sleep but awakens to verbal stimuli. After that he is awake and readily interacts. His affect is normal. SKIN: Warm & dry, posterior left shoulder abrasion essentially healed. HEENT: Normocephalic, atraumatic. NECK: Full AROM w/o pain, no JVD, trachea midline. CARDIOVASCULAR: S1S2 w/RRR w/o M/G/R, radial & pedal pulses 2+ bilaterally, cap refill < 2 sec, no pedal edema. RESPIRATORY: CTAB w/o W/R/R, equal excursion, nonlaboured, on RA. GASTROINTESTINAL: Abdomen soft, nontender, positive bowel sounds. MUSCULOSKELETAL: RIOS w/o difficulty, no evident deformity or clubbing. LSO brace in place. Bilateral paraspinal region surgical incisions well- approximated w/steri-strips intact, healing w/o complication, no sign off infection. NEUROLOGICAL: Asleep but awakens to verbal, alert after that, oriented to person,place & time. . Speech clear & appropriate. Sensation intact to light touch to all extremities. Motor strength BUE & RLE 5/5 and LLE 4+/5 to all major flexion & extension muscle groups. Medical Decision Making Impression and Plan (1) Lumbar radiculopathy (2) Lumbar herniated disc (3) Spondylolisthesis of lumbar region Altered mental status, most likely r/t anaesthesia, improved Fall Lumbar haematoma on CT per Dr Medley Patient is doing well post operatively. POD #7 () s/p: 1. Left L5-S1 transforaminal lumbar interbody fusion, PEEK cage, lamina autograft and demineralized bone matrix. 2. Left L5-S1 foraminal and extraforaminal discectomy-resection herniated nucleus pulposis for left L5 nerve decompression 3. Bilateral L5-S1 posterior instrumentation with pedicle screw fixation Plan: Discussed plan of care with the patient. Discussed plan of care with Case Management. Continue neuro checks. Mobilise patient w/assistance. LSO brace on when OOB. PT eval & tx. Patient able to be discharged once SNF for further rehab is arranged. Juan Francisco Finney Feb 16, 2017 12:21
[2017-02-16] MEDS: D5-1/2 NS + KCL 20 MEQ INJ 1,000 ML IV SCH (13:00)
--- NOTE | 2017-02-16 15:06 | HHI.DCPOC ---
Discharge Care Plan Diagnosis: (1) Intractable low back pain (2) Closed fracture of lumbar vertebra (3) Neuropathy of lower extremity (4) Lumbar radiculopathy (5) Lumbar herniated disc (6) Spondylolisthesis of lumbar region (7) S/P lumbar microdiscectomy Your Health Problems Are: Incision/Drains Exercise Tolerance Goals to Promote Your Health * To prevent worsening of your condition and complications No bending over, lifting, reaching or pulling or other strenuous activity. Use a wheeled walker when ambulating. Wear the TLSO brace when out of bed. Avoid taking any medication containing aspirin or NSAIDs (ibuprofen, Motrin, naproxen, Aleve, etc.). You may shower and let the water run over the surgical incisions. No tub bathing until the surgical incisions have completely healed. * To maintain your health at the optimal level Directions to Meet Your Goals Take your medications as prescribed Follow your dietary instruction Follow activity as directed Keep your appointments as scheduled Take your immunizations and boosters as scheduled If your symptoms worsen call your PCP, if no PCP go to Urgent Care Center or Emergency Room Smoking is Dangerous to Your Health. Avoid second hand smoke Call the 24-hour hour crisis hotline for domestic abuse at [facility] Feb 16, 2017 15:06 Tyson Medley MD Apr 05, 2017 07:26
--- NOTE | 2017-02-16 15:11 | HHI.DS ---
[facility] 02/16/17 1511: Discharge Summary Admission Date Feb 09, 2017 at 08:09 Discharge Date: Feb 16, 2017 Admitting Diagnosis (1) Intractable low back pain Diagnosis: Principal ICD Code: M54.5 - Low back pain Status: Acute (2) Lumbar radiculopathy Diagnosis: Secondary ICD Code: M54.16 - Lumbar radiculopathy Status: Acute (3) Lumbar herniated disc Diagnosis: Secondary ICD Code: M51.26 - Lumbar herniated disc Status: Acute (4) Spondylolisthesis of lumbar region Diagnosis: Secondary ICD Code: M43.16 - Spondylolisthesis, lumbar region Status: Acute (5) Closed fracture of lumbar vertebra Diagnosis: Secondary ICD Code: S32.009A - Closed fracture of lumbar vertebra Status: Acute (6) S/P lumbar microdiscectomy Diagnosis: Secondary ICD Code: Z98.89 - S/P lumbar microdiscectomy Status: Acute Procedures : 1. Left L5-S1 transforaminal lumbar interbody fusion, PEEK cage, lamina autograft and demineralized bone matrix. 2. Left L5-S1 foraminal and extraforaminal discectomy-resection herniated nucleus pulposis for left L5 nerve decompression 3. Bilateral L5-S1 posterior instrumentation with pedicle screw fixation Significant Findings Laboratory Tests Test 02/14/17 19:00 Urine Occult Blood TRACE (NEG) Urine Leukocyte Esterase SMALL (NEG) Hospital Course 02/09: The patient presented to [facility] to undergo a left L5-S1 transforaminal lumbar interbody fusion w/cage, foraminal & extraforaminal discectomy and bilateral L5-S1 posterior instrumentation & screw fixation for lumbar radiculopathy. Post-operatively the patient was admitted to a regular med /surg floor. During the night the patient became confused and got up out of bed on his own and fell, striking his forehead, left shoulder and back. A stat CT lumbar spine was done w/o any acute findings other than post-operative findings with instrumentation in good position. He was transferred to the [facility] for further management. During the night he became increasingly more confused and a stat CT brain was done which was unremarkable for any acute findings. He was given 0.5 mg hydromorphone for pain due to concerns of over sedating him. 02/10: The patient is sitting in a chair when seen this morning. He is complaining of back pain. He is still confused and keeps repeating that he needs explicit instructions on what to do. It was explained to him a several times he was staying in the hospital and what the plan was but he would again ask about it. 02/12: The patient is laying in bed watching TV. He denies any complaints and says he feels the best he has in years. He states he doesn't think he will need any scripts because he doesn't have any pain. He also says he plans to do physical therapy at [facility]. 02/15: The patient is sitting in the chair watching TV this afternoon when seen. He has no complaints and denies any back pain. This practitioner spoke with Case Management who said he should be able to go anywhere he wants since he has Medicare and is 81 years old. The [place] admission liaison reviewed how the patient was doing with physical therapy and stated that he was to high functioning for them. 02/16: The patient is asleep in the chair when seen. He awakens to verbal stimuli and after that is awake and readily interacts. Pt Condition on Discharge: Good Discharge Disposition: Discharge to SNF Discharge Instructions DIET: Follow Instructions for: As Tolerated, No Restrictions ACTIVITIES You can perform: Full Weight Bearing, Shower Only-No Bath Activities to Avoid: Lifting/Bending, Strenuous Activity, Bathing Tyson Medley MD 04/05/17 0726: [facility] Feb 16, 2017 15:11 Tyson Medley MD Apr 05, 2017 07:26
[2017-02-16] MEDS ORDERED: ULTR50TA5 PO (15:18)
[2017-02-16 16:23] VITALS: BP 126/57; PULSE 65; RESP 18; TEMP 98.4; O2SAT 96
[2017-03-05] MEDS ORDERED: FORT500T3 (09:06)
[2017-03-05] MEDS ORDERED: OXYC1TAB63 (09:06)
[2017-04-01] MEDS ORDERED: PARO20TA2 (10:24)
== END 2017-02-16 19:41 | DRG 460 ==
LOC: HSDI 02-09 08:09 → N06A 02-09 21:39 → N03B 02-09 23:36 → EDSTATUS 02-11 11:00 → N05B 02-11 18:48
PROVIDERS: ADMIT Neurological Surgery; ATTEND Neurological Surgery
PROC: 0ST40ZZ Resection of Lumbosacral Disc, Open Approach (ICD-10-PCS; 2017-02-09)
PROC: 0SG30AJ Fusion of Lumbosacral Joint with Interbody Fusion Device, Posterior Approach, Anterior Column, Open Approach (ICD-10-PCS; principal; 2017-02-09 13:08)
DX: M51.16 Intervertebral disc disorders with radiculopathy, lumbar region (principal); M43.16 Spondylolisthesis, lumbar region; S00.83XA Contusion of other part of head, initial encounter; S40.212A Abrasion of left shoulder, initial encounter; W06.XXXA Fall from bed, initial encounter; Y93.89 Activity, other specified; Y92.230 Patient room in hospital as the place of occurrence of the external cause
CPT/HCPCS: 70450; 72100; 72131; 76000; 80048; 81001; 85025; 85027; 86850; 86900; 86901; 87641; C1713; J0131; J0690; J1100; J1170; J1580; J2250; J2270; J2370; J3010; J3370; J3480; J7040; J7050; J7120; L0484

== ENCOUNTER → 2017-02-04 | Outpatient (CLI) | payer MEDICARE, OTHER ==
[~2017-02-04] MED LIST changes: -D31000CA; +D31000CA PO; +FORT500T3; +OXYC1CAP PO; +OXYC1TAB63; +PARO20TA2; +TRAZ1TAB45 PO; +ULTR50TA5 PO; +VITA10002 PO
[2017-02-04 12:11] LABS: HEMATOCRIT 36.7 % (39.0-51.0); MEAN CELL VOLUME 96.4 FL (80.0-100.0); MEAN CORPUSCULAR HEMOGLOBIN 32.6 PG (27.0-34.0); MEAN CORPUSCULAR HGB CONC 33.9 % (32.0-36.0); PLATELET COUNT 231 TH/MM3 (150-450); RED BLOOD COUNT 3.81 MIL/MM3 (4.50-5.90); RED CELL DISTRIBUTION WIDTH 13.1 % (11.6-17.2); REVIEW FLAG FINAL; WHITE BLOOD COUNT 13.6 TH/MM3 (4.0-11.0)
[2017-02-04 12:21] LABS: APTT (PATIENT) 26.3 SEC (24.3-30.1); PROTHROMBIN TIME - PATIENT 10.9 SEC (9.8-11.6)
[2017-02-04 12:33] LABS: BICARBONATE 24.5 MEQ/L (21.0-32.0); POTASSIUM 4.1 MEQ/L (3.5-5.1)
--- NOTE | 2017-02-04 14:04 | RADRPT ---
EXAM DATE/TIME: 02/04/2017 13:02 [facility] COMPARISON: CHEST PA & LAT, June 06, 2014, 12:54. INDICATIONS : Evaluate for pneumonia, pneumothorax or communicable disease. Pre-op lumbar surgery. MEDICAL HISTORY : Hypertension. Carcinoma, prostate. SURGICAL HISTORY : Tonsillectomy. Discectomy, lumbar. ENCOUNTER: Initial ACUITY: 1 day PAIN SCORE: 0/10 LOCATION: Bilateral chest FINDINGS: PA and lateral views of the chest demonstrate the lungs to be symmetrically aerated without evidence of mass, infiltrate or effusion. The cardiomediastinal contours are unremarkable. There continue to be multiple stable old healed fractures of the right ribs. There is stable scarring in the right cost ophrenic angle. No significant changes are demonstrated compared to 2013. CONCLUSION: No acute disease. No significant change has occurred. Sae Kern MD on February 04, 2017 at 14:02 Board Certified Radiologist. This report was verified electronically.
--- NOTE | 2017-02-05 14:12 | EKG ---
Date Performed: 02/04/2017 Time Performed: 12:05:07 PTAGE: 81 years EKG: Sinus rhythm NORMAL ECG NO PREVIOUS TRACING Since previous tracing, there is some improvement in the T-wave carlin es. DOCTOR: Hema Vila Interpretating Date/Time 02/05/2017 14:12:01
== END ==
LOC: CPRE 11:27
PROVIDERS: ATTEND Neurological Surgery
DX: Z01.810 Encounter for preprocedural cardiovascular examination (principal); Z01.811 Encounter for preprocedural respiratory examination; Z01.812 Encounter for preprocedural laboratory examination; Z01.818 Encounter for other preprocedural examination; M51.26 Other intervertebral disc displacement, lumbar region; M54.16 Radiculopathy, lumbar region
CPT/HCPCS: 36415; 71020; 80048; 85027; 85610; 85730; 93005

== ENCOUNTER → 2017-04-19 | Outpatient (CLI) | payer MEDICARE, OTHER ==
[~2017-04-19] MED LIST changes: +FORT500T3; +OXYC1TAB63; +PARO20TA2; +TRAZ1TAB45 PO; +ULTR50TA5 PO; +VITA10002 PO
[2017-04-19 13:26] LABS: HEMATOCRIT 39.2 % (39.0-51.0); MEAN CELL VOLUME 100.4 FL (80.0-100.0); MEAN CORPUSCULAR HEMOGLOBIN 34.1 PG (27.0-34.0); MEAN CORPUSCULAR HGB CONC 33.9 % (32.0-36.0); PLATELET COUNT 208 TH/MM3 (150-450); RED BLOOD COUNT 3.91 MIL/MM3 (4.50-5.90); RED CELL DISTRIBUTION WIDTH 12.8 % (11.6-17.2); REVIEW FLAG FINAL; WHITE BLOOD COUNT 9.4 TH/MM3 (4.0-11.0)
[2017-04-19 14:06] LABS: ALT (GPT) 25 U/L (12-78); ANION GAP 7 MEQ/L (5-15); AST (GOT) 13 U/L (15-37); BICARBONATE 25.5 MEQ/L (21.0-32.0); BLOOD UREA NITROGEN 25 MG/DL (7-18); CHLORIDE 109 MEQ/L (98-107); GLOMERULAR FILTRATION RATE 57 ML/MIN (>89); GLUCOSE,FASTING 143 MG/DL (74-99); SODIUM (NA) 141 MEQ/L (136-145)
[2017-04-19 14:09] LABS: ALKALINE PHOSPHATASE 81 U/L (45-117); LDL CHOLESTEROL 66 MG/DL (0-99); LDL CHOLESTEROL DIRECT 71 MG/DL (0-99); TOTAL BILIRUBIN ADULT 0.2 MG/DL (0.2-1.0)
[2017-04-19 14:13] LABS: MICRO ALBUMIN RANDOM URINE RAW 11.8 MG/L (0.0-30.0)
[2017-04-19 14:53] LABS: BLOOD, URINE NEG (NEG); CALCIUM OXALATE CRYSTALS,URINE MOD /hpf; GLUCOSE,URINE NEG (NEG); KETONE, URINE NEG (NEG); MUCUS URINE FEW /lpf (OCC); NITRITE,URINE NEG (NEG); PH, URINE 5.5 (5.0-8.5); SQUAMOUS EPITHELIAL CELL URINE <1 /hpf (0-5); URINE COLOR YELLOW (YELLW/STRAW)
[2017-04-19 17:34] LABS: HEMOGLOBIN A1a 1.1 %; HEMOGLOBIN A1b 1.1 %; HEMOGLOBIN Ao 83.4 %; HEMOGLOBIN LA1C 2.5 %; HEMOGLOBIN P3 4.2 %
== END ==
LOC: PLAB 08:18
PROVIDERS: ATTEND Family Medicine
DX: C61 Malignant neoplasm of prostate (principal); E11.9 Type 2 diabetes mellitus without complications; E78.5 Hyperlipidemia, unspecified; I10 Essential (primary) hypertension; N20.0 Calculus of kidney
CPT/HCPCS: 36415; 80053; 80061; 81001; 82043; 83036; 83721; 84153; 85027

== ENCOUNTER → 2017-10-20 | Outpatient (CLI) | payer MEDICARE, BC ==
[~2017-10-20] MED LIST changes: -D31000CA PO; +TRAM50 PO; +TRAZ1TAB14 PO; -TRAZ1TAB45 PO; -ULTR50TA5 PO; +[UNRECOGNIZED DRUG - CODE] PO
[2017-10-20 10:16] LABS: HEMATOCRIT 37.9 % (39.0-51.0); HEMOGLOBIN 12.9 GM/DL (13.0-17.0); MEAN CELL VOLUME 97.8 FL (80.0-100.0); MEAN CORPUSCULAR HEMOGLOBIN 33.2 PG (27.0-34.0); MEAN CORPUSCULAR HGB CONC 33.9 % (32.0-36.0); MEAN PLATELET VOLUME 8.9 FL (7.0-11.0); PLATELET COUNT 222 TH/MM3 (150-450); RED BLOOD COUNT 3.88 MIL/MM3 (4.50-5.90); RED CELL DISTRIBUTION WIDTH 12.7 % (11.6-17.2); WHITE BLOOD COUNT 10.5 TH/MM3 (4.0-11.0)
[2017-10-20 10:29] LABS: ALBUMIN 3.7 GM/DL (3.4-5.0); AST (GOT) 14 U/L (15-37); BICARBONATE 27.1 MEQ/L (21.0-32.0); BLOOD UREA NITROGEN 21 MG/DL (7-18); CALCIUM 9.4 MG/DL (8.5-10.1); CHLORIDE 108 MEQ/L (98-107); CREATININE 1.24 MG/DL (0.60-1.30); GLOMERULAR FILTRATION RATE 56 ML/MIN (>89); GLUCOSE,FASTING 127 MG/DL (74-99); SODIUM (NA) 142 MEQ/L (136-145)
[2017-10-20 10:30] LABS: ALT (GPT) 25 U/L (12-78); CHOLESTEROL 117 MG/DL (120-200)
[2017-10-20 10:33] LABS: ALKALINE PHOSPHATASE 80 U/L (45-117); CHOLESTEROL/ HDL RATIO 2.43 RATIO; LDL CHOLESTEROL 54 MG/DL (0-99); LDL CHOLESTEROL DIRECT 70 MG/DL (0-99); TOTAL BILIRUBIN ADULT 0.3 MG/DL (0.2-1.0); TOTAL PROTEIN 6.9 GM/DL (6.4-8.2); TRIGLYCERIDES 75 MG/DL (42-150)
[2017-10-20 16:52] LABS: HEMOGLOBIN A1C 6.4 % (4.3-6.0)
== END ==
LOC: PLAB 07:28
PROVIDERS: ATTEND Family Medicine
DX: E11.9 Type 2 diabetes mellitus without complications (principal); E78.5 Hyperlipidemia, unspecified; I10 Essential (primary) hypertension
CPT/HCPCS: 36415; 80053; 80061; 83036; 83721; 85027